=== PATIENT | male | born 1950 | race Caucasian/White ===

== ENCOUNTER 2022-10-15 00:20 | Emergency (ER) | payer OTHER ==
--- OUTSIDE RECORDS SUMMARY | 2022-10-15 00:28 | XMS REPORT | Continuity of Care Document ---
:1950 Author Organization [facility] t Address [address] [place] [address] [address] [place] [address] Care Team Providers Name Role Phone PRETTY SALAS Primary Care Physician Unavailable Will Guzman Attending Clinician Unavailable CASSIE SORIANO Attending Clinician Unavailable KARYN KRUGER Attending Clinician Unavailable TREVA SORIANO Attending Clinician Unavailable Demetria FAIRCHILD, Cassie Virk Attending Clinician Treva Soriano MD Attending Clinician Pretty Salas MD Attending Clinician Brandon ANDERSON, Maureen Attending Clinician Unavailable MICHAEL GARCIA Attending Clinician Unavailable CASSIE SORIANO Admitting Clinician Unavailable MICHAEL GARCIA Admitting Clinician Unavailable Payers Payer Name Policy Type Policy Number Effective Date Expiration Date S [facility] MEDICARE A B [id number] 2017 00:00:00 [facility] [id number] 2017 HEALTHCARE 00:00:00 AET[employer] O POS QPOS [id number] 2013 2017 00:00:00 00:00:00 MEDICARE ADVANTAGE [id number] [facility] MEDICARE PART A [id number] \\T\\ B - MEDICARE OPEN ACCESS [id number] 2016 HMO/POS/EPO/PPO - 00:00:00 [employer] Problems Condition Condition Condition Status Onset Resolution Last Treating Co mments Source Name Details Category Date Date Treatment Clinician Date Bilateral Bilateral Disease Active [facility] extremity extremity 00:00: of edema edema 00 Medicin e Bilateral Bilateral Disease Active [facility] extremity extremity 00:00: of edema edema 00 Medicin e Prostate Prostate Disease Active [facility] cancer cancer 10-02 [facility] 00:00: of 00 Medicin e 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 Medici n lymph node lymph node e Chemothe[facility] Chemothera Disease Active [facility] py induced py induced 10-02 Co llege nausea and nausea and 00:00: of vomiting vomiting 00 Medici n e Malignant Malignant Disease [facility]11 [facility] 00:[facility]: Medical prostate prostate 00 Gam[facility] [id number] Erectile Problem Comm on dysfunctio Spirit n, - [facility] unspecifie [facility] dysfunctio Medica l n type Center [id number] GERD Problem Common without Spirit esophagiti - [facility] [id number] Other Problem Common obesity Spirit due to - [facility] excess [facility] [id number] Esophageal Problem Co mmon stenosis Spirit - [facility] [id number] Mixed Problem Common hyperlipid Spirit emia - [facility] [id number] Essential Problem Comm on (primary) Spirit hypertensi - [facility] Allergies, Adverse Reactions, Alerts Allergy Allergy Status Severity Reaction(s) Onset Inactive Treating Comm ents Source Name Type Date Date Clinician NO KNOWN Allergy Active [facility] Social History Social Habit Start Date Stop Date Quantity Comments Source History [facility] ge Alcohol Frequency of Medi cine History [facility] ge Alcohol Std Drinks of Med icine History [facility] ge Alcohol Binge of Medicine History of Tobacco Common Spirit - Use [facility] Exposure to 2022-09-10 2022-09-20 Not sure [facility] Byrong e SARS-CoV-2 (event) 00:00:00 08:23:00 of Med icine Alcohol Comment 2018-01-10 2018-01-10 quit november 2016 [facility] 00:00:00 00:00:00 of Medicine Alcohol intake 2017-11-03 2017-11-03 .43 /d [facility] Cigarettes smoked 2017-11-03 2017-11-[address] [facility] current (pack per 00:00:00 00:00:00 [facility] Center day) - Reported Cigarette 2017-11-03 2017-11-[address] [facility] pack-years 00:00:00 00:00:00 [facility] Tobacco use and 2016-10-01 2016-10-01 Smokeless tobacco [employer] [facility] [employer] exposure 00:00:00 00:00:00 non-user of Medicine Sex [birth year] INEZ Khourys 00:00:00 00:00:00 [facility] Smoking Status Start Date Stop Date Source Former Smoker 2022-04-06 00:00:00 2022-04-06 00:00:00 Common S pirit - [facility] Medications Ordered Filled Start Stop Current Ordering Indication Dosage Frequency Signature Comments Components Source Medication Medication Date Date Medication? Clinician (SIG) Name Name omeprazole Yes 40mg Take 40 mg [facility] (PRILOSEC) 5-24 by mouth [facility] 40 MG 11:48: every 48 of capsule 00 hours. Medicin e Cholecalcif Yes 4000U Take 4,000 [facility] arash 5-24 Units by [place] (VITAMIN D) 11:48: mouth of 2000 UNITS 00 daily. Medicin CAPS e latanoprost Yes 1[drp] 1 Drop [facility] (XALATAN) 5-24 every College 0.005 % 11:48: evening. of ophthalmic 00 Medicin solution e B Complex Yes 1{tbl} Take 1 [facility] Vitamins 5-24 Tablet by Samuel ragland (VITAMIN B 11:48: mouth of COMPLEX OR) 00 daily. Medici n e Multiple Yes 1{tbl} Take 1 [facility] Minerals-Vi 5-24 Tablet by Col eva calderon 11:48: mouth of (CALCIUM-MA 00 daily. Medici n GNESIUM-ZIN e C-D3 OR) Melatonin Yes 1{tbl} Take 1 [facility] 3-2 MG TABS 5-24 Tablet by [facility] 11:48: mouth at of 00 bedtime. Medicin e omeprazole 0 Yes 40mg Take 40 mg [facility] (PRILOSEC) 5-24 by mouth [facility] 40 MG 11:48: every 48 of capsule 00 hours. Medicin e Cholecalcif 0 Yes 4000U Take 4,000 [facility] arash 5-24 Units by [place] (VITAMIN D) 11:48: mouth of 2000 UNITS 00 daily. Medicin CAPS e latanoprost Yes 1[drp] 1 Drop [facility] (XALATAN) 5-24 every College 0.005 % 11:48: evening. of ophthalmic 00 Medicin solution e B Complex Yes 1{tbl} Take 1 [facility] Vitamins 5-24 Tablet by [facility] (VITAMIN B 11:48: mouth of COMPLEX OR) 00 daily. Medici n e Multiple Yes 1{tbl} Take 1 [facility]-Vi 5-24 Tablet by [facility] tamins 11:48: mouth of (CALCIUM-MA 00 daily. Medici n GNESIUM-ZIN e C-D3 OR) Melatonin Yes 1{tbl} Take 1 [facility] 3-2 MG TABS 5-24 Tablet by [facility] 11:48: mouth at of 00 bedtime. Medicin e atorvastati 0 Yes [id number] TAKE 1 [facility] n (LIPITOR) 9-13 TABLET BY [facility] 20 MG 00:00: MOUTH of tablet 00 DAILY Medicin e atorvastati 0 Yes [id number] TAKE 1 [facility] n (LIPITOR) 9-13 TABLET BY [facility] 20 MG 00:00: MOUTH of tablet 00 DAILY Medicin e omeprazole 0 Yes 40mg Take 40 mg [facility] (PRILOSEC) 8-27 by mouth [facility] 40 MG 11:56: every 48 of capsule 21 hours. Medicin e Cholecalcif 0 Yes 4000U Take 4,000 [facility] arash 8-27 Units by [place] (VITAMIN D) 11:56: mouth of 2000 UNITS 21 daily. Medicin CAPS e latanoprost Yes 1[drp] 1 Drop [facility] (XALATAN) 8-27 every College 0.005 % 11:56: evening. of ophthalmic 21 Medicin solution e B Complex Yes 1{tbl} Take 1 [facility] Vit[facility] 8-27 Tablet by Samuel ragland (VITAMIN B 11:56: mouth of COMPLEX OR) 21 daily. Medici n e Multiple Yes 1{tbl} Take 1 [facility]-Vi 8-27 Tablet by [facility] tamins 11:56: mouth of (CALCIUM-MA 21 daily. Medici n GNESIUM-ZIN e C-D3 OR) Melatonin Yes 1{tbl} Take 1 [facility] 3-2 MG TABS 8-27 Tablet by [facility] 11:56: mouth at of 21 bedtime. Medicin e omeprazole Yes 40mg Take 40 mg [facility] (PRILOSEC) 8-27 by mouth [facility] 40 MG 11:56: every 48 of capsule 21 hours. Medicin e Cholecalcif Yes 4000U Take 4,000 [facility] arash 8-27 Units by [place] (VITAMIN D) 11:56: mouth of 2000 UNITS 21 daily. Medicin CAPS e latanoprost Yes 1[drp] 1 Drop [facility] (XALATAN) 8-27 every College 0.005 % 11:56: evening. of ophthalmic 21 Medicin solution e B Complex Yes 1{tbl} Take 1 [facility] Vit[facility] 8-27 Tablet by Samuel ragland (VITAMIN B 11:56: mouth of COMPLEX OR) 21 daily. Medici n e Multiple Yes 1{tbl} Take 1 [facility]-Vi 8-27 Tablet by [facility] tamins 11:56: mouth of (CALCIUM-MA 21 daily. Medici n GNESIUM-ZIN e C-D3 OR) Melatonin Yes 1{tbl} Take 1 [facility] 3-2 MG TABS 8-27 Tablet by [facility] 11:56: mouth at of 21 bedtime. Medicin e omeprazole Yes 40mg Take 40 mg [facility] (PRILOSEC) 8-24 by mouth [facility] 40 MG 15:26: every 48 of capsule 07 hours. Medicin e Cholecalcif 0 Yes 4000U Take 4,000 [facility] arash 8-24 Units by [place] (VITAMIN D) 15:26: mouth of 2000 UNITS 07 daily. Medicin CAPS e latanoprost Yes 1[drp] 1 Drop [facility] (XALATAN) 8-24 every College 0.005 % 15:26: evening. of ophthalmic 07 Medicin solution e B Complex Yes 1{tbl} Take 1 [facility] Vitamins 8-24 Tablet by [facility] (VITAMIN B 15:26: mouth of COMPLEX OR) 07 daily. Medici n e Multiple Yes 1{tbl} Take 1 [facility]-Vi 8-24 Tablet by [facility] tamins 15:26: mouth of (CALCIUM-MA 07 daily. Medici n GNESIUM-ZIN e C-D3 OR) Melatonin Yes 1{tbl} Take 1 [facility] 3-2 MG TABS 8-24 Tablet by [facility] 15:26: mouth at of 07 bedtime. Medicin e Melatonin Yes 1{tbl} Take 1 [facility] 3-2 MG TABS 8-24 Tablet by [facility] 13:45: mouth at of 56 bedtime. Medicin e omeprazole Yes 40mg Take 40 mg [facility] (PRILOSEC) 8-24 by mouth [facility] 40 MG 13:38: every 48 of capsule 14 hours. Medicin e Cholecalcif Yes 4000U Take 4,000 [facility] arash 8-24 Units by [place] (VITAMIN D) 13:38: mouth of 2000 UNITS 14 daily. Medicin CAPS e latanoprost Yes 1[drp] 1 Drop [facility] (XALATAN) 8-24 every College 0.005 % 13:38: evening. of ophthalmic 14 Medicin solution e B Complex Yes 1{tbl} Take 1 [facility] Vitamins 8-24 Tablet by [facility] (VITAMIN B 13:38: mouth of COMPLEX OR) 14 daily. Medici n e Multiple 0 Yes 1{tbl} Take 1 [facility]-Vi 8-24 Tablet by Col eva calderon 13:38: mouth of (CALCIUM-MA 14 daily. Medici n GNESIUM-ZIN e C-D3 OR) Pyridoxine 2020- No Take by [facility] HCl - 08-24 mouth. [place] (VITAMIN 13:37: 00:00 of B-6 OR) 58 :00 Medicin e Biotin 300 2020- No Take by [facility] MCG TABS 01-27-24 mouth. [place] 13:37: 00:00 of 31 :00 Medicin e Calcium 600 2020- No 600mg Take 600 [facility] MG TABS 01-27-24 mg by [place] 13:33: 00:00 mouth two of 30 :00 times Medicin daily. e Cyanocobala 2020- No 1000mg Take 1,000 [facility] min 01-27 08-24 mg by [place] (VITAMIN B 13:32: 00:00 mouth of 12 OR) 20 :00 daily. Medicin e NIACIN OR 2020- No Take by [facility] 01-27-24 mouth. [place] 13:31: 00:00 of 50 :00 Medicin e bimatoprost 2020- No 1[drp] Place 1 [facility] (LUMIGAN) 01-27 Drop into [facility] 0.03 % 13:28: 00:00 both eyes. of ophthalmic 30 :00 Medicin solution e omeprazole Yes 40mg Take 40 mg [facility] (PRILOSEC) 2-26 by mouth [facility] 40 MG 16:44: daily. of capsule 33 Medicin e Calcium 600 0 Yes 600mg Take 600 [facility] MG TABS 2-26 mg by [place] 16:44: mouth two of 33 times Medicin daily. e Cholecalcif 0 Yes 2000U Take 2,000 [facility] arash 2-26 Units by [place] (VITAMIN D) 16:44: mouth of 2000 UNITS 33 daily. Medicin CAPS e Cyanocobala 0 Yes 1000mg Take 1,000 [facility] min 2-26 mg by [place] (VITAMIN B 16:44: mouth of 12 OR) 33 daily. Medicin e bimatoprost 2021-0 Yes 1[drp] Place 1 [facility] (LUMIGAN) 2-26 Drop into Colle [facility] 0.03 % 16:44: both eyes. of ophthalmic 33 Medicin solution e NIACIN OR 0 Yes Take by [facility] 2-26 mouth. [place] 16:44: of 33 Medicin e Pyridoxine 2020-0 Yes Take by [facility] HCl 2-26 mouth. [place] (VITAMIN 16:44: of B-6 OR) 33 Medicin e Biotin 300 2020-0 Yes Take by [facility] MCG TABS 2-26 mouth. [place] 16:44: of 33 Medicin e omeprazole 2020-0 Yes 40mg Take 40 mg [facility] (PRILOSEC) 8-21 by mouth [facility] 40 MG 15:09: daily. of capsule 16 Medicin e Calcium 600 2020-0 Yes 600mg Take 600 [facility] MG TABS 8-21 mg by [place] 15:09: mouth two of 16 times Medicin daily. e Cholecalcif 2020-0 Yes 2000U Take 2,000 [facility] arash 8-21 Units by [place] (VITAMIN D) 15:09: mouth of 2000 UNITS 16 daily. Medicin CAPS e Cyanocobala 2020-0 Yes 1000mg Take 1,000 [facility] min 8-21 mg by [place] (VITAMIN B 15:09: mouth of 12 OR) 16 daily. Medicin e bimatoprost 2020-0 Yes 1[drp] Place 1 [facility] (LUMIGAN) 8-21 Drop into Colle [facility] 0.03 % 15:09: both eyes. of ophthalmic 16 Medicin solution e NIACIN OR 2020-0 Yes Take by [facility] 8-21 mouth. [place] 15:09: of 16 Medicin e Pyridoxine 2020-0 Yes Take by [facility] HCl 8-21 mouth. [place] (VITAMIN 15:09: of B-6 OR) 16 Medicin e Biotin 300 2020-0 Yes Take by [facility] MCG TABS 8-21 mouth. [place] 15:09: of 16 Medicin e thiamine 2020-0 2020- No 100mg Take [address] [facility] 100 MG 8-21 08-21 mg by [place] tablet 15:08: 00:00 mouth of 45 :00 daily. Medicin e omeprazole 2020-0 Yes 40mg Take 40 mg [facility] (PRILOSEC) 7-30 by mouth [facility] 40 MG 15:00: daily. of capsule 31 Medicin e Calcium 600 2020-0 Yes 600mg Take 600 [facility] MG TABS 7-30 mg by College 15:00: mouth two of 31 times Medicin daily. e Cholecalcif 2020-0 Yes 2000U Take 2,000 [facility] arash 7-30 Units by [place] (VITAMIN D) 15:00: mouth of 2000 UNITS 31 daily. Medicin CAPS e Cyanocobala 2020-0 Yes 1000mg Take 1,000 [facility] min 7-30 mg by [place] (VITAMIN B 15:00: mouth of 12 OR) 31 daily. Medicin e bimatoprost 2020-0 Yes 1[drp] Place 1 [facility] (LUMIGAN) 7-30 Drop into Colle ge 0.03 % 15:00: both eyes. of ophthalmic 31 Medicin solution e thiamine 2020-0 Yes 100mg Take 100 [facility] 100 MG 7-30 mg by [place] tablet 15:00: mouth of 31 daily. Medicin e NIACIN OR 2020-0 Yes Take by [facility] 7-30 mouth. College 15:00: of 31 Medicin e Pyridoxine 2020-0 Yes Take by [facility] HCl 7-30 mouth. [place] (VITAMIN 15:00: of B-6 OR) 31 Medicin e Biotin 300 2020-0 Yes Take by [facility] MCG TABS 7-30 mouth. College 15:00: of 31 Medicin e atorvastati 2020-0 Yes [id number] 20mg Take 1 Tab [facility] n (LIPITOR) 7-30 by mouth [place] [facility] 20 MG 00:00: daily. of tablet 00 Medicin e atorvastati 2020-0 Yes [id number] 20mg Take 1 Tab [facility] n (LIPITOR) 7-30 by mouth [place] 20 MG 00:00: daily. of tablet 00 Medicin e atorvastati 2020-0 Yes [id number] 20mg Take 1 Tab [facility] n (LIPITOR) 7-30 by mouth [place] 20 MG 00:00: daily. of tablet 00 Medicin e atorvastati 2020-0 Yes [id number] 20mg Take 1 Tab [facility] n (LIPITOR) 7-30 by mouth [place] 20 MG 00:00: daily. of tablet 00 Medicin e atorvastati 2020-0 Yes [id number] 20mg Take 1 Tab [facility] n (LIPITOR) 7-30 by mouth [place] 20 MG 00:00: daily. of tablet 00 Medicin e atorvastati 2020-0 Yes [id number] 20mg Take 1 Tab [facility] n (LIPITOR) 7-30 by mouth [place] 20 MG 00:00: daily. of tablet 00 Medicin e atorvastati 2020-0 Yes [id number] 20mg Take 1 Tab [facility] n (LIPITOR) 7-30 by mouth [place] 20 MG 00:00: daily. of tablet 00 Medicin e omeprazole 2020-0 Yes 40mg Take 40 mg [facility] (PRILOSEC) 2-21 by mouth [facility]le [facility] 40 MG 17:41: daily. of capsule 15 Medicin e Calcium 600 2020-0 Yes 600mg Take 600 [facility] MG TABS 2-21 mg by [place] 17:41: mouth two of 15 times Medicin daily. e Cholecalcif 2020-0 Yes 2000U Take 2,000 [facility] arash 2-21 Units by [place] (VITAMIN D) 17:41: mouth of 2000 UNITS 15 daily. Medicin CAPS e Cyanocobala 2020-0 Yes 1000mg Take 1,000 [facility] min 2-21 mg by [place] (VITAMIN B 17:41: mouth of 12 OR) 15 daily. Medicin e bimatoprost 2020-0 Yes 1[drp] Place 1 [facility] (LUMIGAN) 2-21 Drop into [facility] 0.03 % 17:41: both eyes. of ophthalmic 15 Medicin solution e thiamine 2020-0 Yes 100mg Take 100 [facility] 100 MG 2-21 mg by [place] tablet 17:41: mouth of 15 daily. Medicin e NIACIN OR 2020-0 Yes Take by [facility] 2-21 mouth. College 17:41: of 15 Medicin e Pyridoxine 2020-0 Yes Take by [facility] HCl 2-21 mouth. [place] (VITAMIN 17:41: of B-6 OR) 15 Medicin e Biotin 300 2020-0 Yes Take by [facility] MCG TABS 2-21 mouth. [place] 17:41: of 15 Medicin e omeprazole 2018- Yes 40mg Take 40 mg [facility] (PRILOSEC) 0-08 by mouth [facility] 40 MG 17:26: daily. of capsule 35 Medicin e Calcium 600 2018-06 Yes 600mg Take 600 [facility] MG TABS 0-08 mg by [facility] 17:26: mouth two of 35 times Medicin daily. e Cholecalcif 2018-06 Yes 2000U Take 2,000 [facility] arash 0-08 Units by [place] (VITAMIN D) 17:26: mouth of 2000 UNITS 35 daily. Medicin CAPS e Cyanocobala 2018-06 Yes 1000mg Take 1,000 [facility] min 0-08 mg by [facility] (VITAMIN B 17:26: mouth of 12 OR) 35 daily. Medicin e bimatoprost 2018-06 Yes 1[drp] Place 1 [facility] (LUMIGAN) 0-08 Drop into Colle [facility] 0.03 % 17:26: both eyes. of ophthalmic 35 Medicin solution e thiamine 2018-06 Yes 100mg Take 100 [facility] 100 MG 0-08 mg by [place] tablet 17:26: mouth of 35 daily. Medicin e NIACIN OR 2018-06 Yes Take by [facility] 0-08 mouth. [place] 17:26: of 35 Medicin e Pyridoxine 2018-06 Yes Take by [facility] HCl 0-08 mouth. [place] (VITAMIN 17:26: of B-6 OR) 35 Medicin e Biotin 300 2018-06 Yes Take by [facility] MCG TABS 0-08 mouth. [place] 17:26: of 35 Medicin e Cyanocobala Yes 1000mg Take 1,000 [facility] min 9-13 mg by [place] (VITAMIN B 16:14: mouth of 12 OR) 34 daily. Medicin e bimatoprost Yes 1[drp] Place 1 [facility] (LUMIGAN) 9-13 Drop into Colle ge 0.03 % 16:14: both eyes. of ophthalmic 34 Medicin solution e thiamine Yes 100mg Take 100 [facility] 100 MG 9-13 mg by [place] tablet 16:14: mouth of 34 daily. Medicin e NIACIN OR Yes Take by [facility] 9-13 mouth. College 16:14: of 34 Medicin e Pyridoxine Yes Take by [facility] HCl 9-13 mouth. [place] (VITAMIN 16:14: of B-6 OR) 34 Medicin e Biotin 300 Yes Take by [facility] MCG TABS 9-13 mouth. College 16:14: of 34 Medicin e omeprazole 2019-0 Yes 40mg Take 40 mg [facility] (PRILOSEC) 9-13 by mouth Colle [facility] 40 MG 16:14: daily. of capsule 34 Medicin e Calcium 600 2018-0 Yes 600mg Take 600 [facility] MG TABS 9-13 mg by [facility] 16:14: mouth two of 34 times Medicin daily. e Cholecalcif 2019-0 Yes 2000U Take 2,000 [facility] arash 9-13 Units by [place] (VITAMIN D) 16:14: mouth of 2000 UNITS 34 daily. Medicin CAPS e omeprazole 0 Yes 40mg Take 40 mg [facility] (PRILOSEC) 8-27 by mouth Colle [facility] 40 MG 14:53: daily. of capsule 47 Medicin e Calcium 600 0 Yes 600mg Take 600 [facility] MG TABS 8-27 mg by [facility] 14:53: mouth two of 47 times Medicin daily. e Cholecalcif 0 Yes 2000U Take 2,000 [facility] arash 8-27 Units by [place] (VITAMIN D) 14:53: mouth of 2000 UNITS 47 daily. Medicin CAPS e Cyanocobala 0 Yes 1000mg Take 1,000 [facility] min 8-27 mg by [place] (VITAMIN B 14:53: mouth of 12 OR) 47 daily. Medicin e bimatoprost 2018-0 Yes 1[drp] Place 1 [facility] (LUMIGAN) 8-27 Drop into Colle ge 0.03 % 14:53: both eyes. of ophthalmic 47 Medicin solution e thiamine 0 Yes 100mg Take 100 [facility] 100 MG 8-27 mg by [place] tablet 14:53: mouth of 47 daily. Medicin e NIACIN OR 0 Yes Take by [facility] 8-27 mouth. College 14:53: of 47 Medicin e Pyridoxine 2018-0 Yes Take by [facility] HCl 8-27 mouth. College (VITAMIN 14:53: of B-6 OR) 47 Medicin e Biotin 300 2018-0 Yes Take by [facility] MCG TABS 8-27 mouth. College 14:53: of 47 Medicin e atorvastati 2018-0 Yes [id number] 20mg Take 1 Tab [facility] n (LIPITOR) 8-13 by mouth [place] 20 MG 00:00: daily. of tablet 00 Medicin e atorvastati 2019-0 Yes [id number] 20mg Take 1 Tab [facility] n (LIPITOR) 8-13 by mouth [place] 20 MG 00:00: daily. of tablet 00 Medicin e atorvastati Yes [id number] 20mg Take 1 Tab [facility] (LIPITOR) 8-13 by mouth [place] 20 MG 00:00: daily. of tablet 00 Medicin e atorvastati Yes [id number] 20mg Take 1 Tab [facility] (LIPITOR) 8-13 by mouth [place] 20 MG 00:00: daily. of tablet 00 Medicin e atorvastati 2020- No [id number] 20mg Take 1 Tab [facility] n (LIPITOR) 8-13 07-30 by mouth [facility] 20 MG 00:00: 00:00 daily. of tablet 00 :00 Medicin e atorvastati 2017-06 Yes 20mg QD Take [address] [facility] [facility] (LIPITOR) 0-17 by mouth [facility] 20 MG 16:36: daily. Medical tablet 29 Center zolpidem 2017-06 Yes 10mg Take [address] [facility] (AMBIEN) 10 0-17 by mouth [facility] mg tablet 16:36: every Medical 29 night as Center needed for Insomnia. omeprazole 2017-06 Yes 40mg QD Take [address] (PRILOSEC) 0-17 by mouth [facility] 40 MG 16:36: daily. Medical capsule 29 Center travoprost 2017-06 Yes 1[drp] QD Place [address] (TRAVATAN 0-17 drop into [facility]) 0.004 % 16:36: both eyes Me dical Drop 29 nightly. Center ophthalmic drops atorvastati 2017-06 Yes 20mg QD Take [address] n (LIPITOR) 0-17 by mouth [facility] 20 MG 16:36: daily. Medical tablet 29 Center zolpidem 2017-06 Yes 10mg Take [address] (AMBIEN) 10 0-17 by mouth [facility] mg tablet 16:36: every Medical 29 night as Center needed for Insomnia. omeprazole 2017-06 Yes 40mg QD Take [address] (PRILOSEC) 0-17 by mouth [facility] 40 MG 16:36: daily. Medical capsule 29 Center travoprost 2017-06 Yes 1[drp] QD Place [address] (TRAVATAN 0-17 drop into [facility]) 0.004 % 16:36: both eyes Me dical Drop 29 nightly. Center ophthalmic drops selenium Yes 1{appli Apply 1 [facility] sulfide 4-05 cation} applicatio [facility] (SELSUN) 00:00: n of 2.5 % 00 topically Medicin shampoo daily as e needed. Indication s: LOTION selenium Yes 1{appli Apply 1 [facility] sulfide 4-05 cation} applicatio [facility] (SELSUN) 00:00: n of 2.5 % 00 topically Medicin shampoo daily as e needed. Indication s: LOTION selenium Yes 1{appli Apply 1 [facility] sulfide 4-05 cation} applicatio [facility] (SELSUN) 00:00: n of 2.5 % 00 topically Medicin shampoo as needed. e Indication s: LOTION selenium Yes 1{appli Apply 1 [facility] sulfide 4-05 cation} applicatio [facility] (SELSUN) 00:00: n of 2.5 % 00 topically Medicin shampoo daily as e needed. Indication s: LOTION selenium Yes 1{appli Apply 1 [facility] sulfide 4-05 cation} applicatio [facility] (SELSUN) 00:00: n of 2.5 % 00 topically Medicin shampoo as needed. e Indication s: LOTION selenium Yes 1{appli Apply 1 [facility] sulfide 4-05 cation} applicatio [facility] (SELSUN) 00:00: n of 2.5 % 00 topically Medicin shampoo as needed. e Indication s: LOTION selenium Yes 1{appli Apply 1 [facility] sulfide 4-05 cation} applicatio [facility] (SELSUN) 00:00: n of 2.5 % 00 topically Medicin shampoo as needed. e Indication s: LOTION selenium Yes 1{appli Apply 1 [facility] sulfide 4-05 cation} applicatio [facility] (SELSUN) 00:00: n of 2.5 % 00 topically Medicin shampoo as needed. e Indication s: LOTION selenium Yes 1{appli Apply 1 [facility] sulfide 4-05 cation} applicatio [facility] (SELSUN) 00:00: n of 2.5 % 00 topically Medicin shampoo as needed. e Indication s: LOTION selenium Yes 1{appli Apply 1 [facility] sulfide 4-05 cation} applicatio [facility] (SELSUN) 00:00: n of 2.5 % 00 topically Medicin shampoo as needed. e Indication s: LOTION selenium Yes 1{appli Apply 1 [facility] sulfide 4-05 cation} applicatio [facility] (SELSUN) 00:00: n of 2.5 % 00 topically Medicin shampoo as needed. e Indication s: LOTION selenium Yes 1{appli Apply 1 [facility] sulfide 4-05 cation} applicatio [facility] (SELSUN) 00:00: n of 2.5 % 00 topically Medicin shampoo daily as e needed. Indication s: LOTION selenium Yes 1{appli Apply 1 [facility] sulfide 4-05 cation} applicatio [facility] (SELSUN) 00:00: n of 2.5 % 00 topically Medicin shampoo daily as e needed. Indication s: LOTION hydrocortis Yes 1{appli Apply 1 [facility] one 2.5 % 3-30 cation} applicatio [facility] cream 00:00: n of 00 topically Medicin 2 times e daily as needed. hydrocortis Yes 1{appli Apply 1 [facility] one 2.5 % 3-30 cation} applicatio [facility]lege cream 00:00: n of 00 topically Medicin 2 times e daily as needed. hydrocortis Yes 1{appli Apply 1 [facility] one 2.5 % 3-30 cation} applicatio C ollege cream 00:00: n of 00 topically Medicin 2 times e daily as needed. hydrocortis Yes 1{appli Apply 1 [facility] one 2.5 % 3-30 cation} applicatio [facility] cream 00:00: n of 00 topically Medicin 2 times e daily as needed. hydrocortis 2017-0 Yes 1{appli Apply 1 [facility] one 2.5 % 3-30 cation} applicatio [facility] cream 00:00: n of 00 topically Medicin 2 times e daily as needed. hydrocortis Yes 1{appli Apply 1 [facility] one 2.5 % 3-30 cation} applicatio C ollege cream 00:00: n of 00 topically Medicin 2 times e daily as needed. hydrocortis Yes 1{appli Apply 1 [facility] one 2.5 % 3-30 cation} applicatio C [facility]lege cream 00:00: n of 00 topically Medicin 2 times e daily as needed. hydrocortis Yes 1{appli Apply 1 [facility] one 2.5 % 3-30 cation} applicatio C [facility]lege cream 00:00: n of 00 topically Medicin 2 times e daily as needed. hydrocortis Yes 1{appli Apply 1 [facility] one 2.5 % 3-30 cation} applicatio [facility] cream 00:00: n of 00 topically Medicin 2 times e daily as needed. hydrocortis Yes 1{appli Apply 1 [facility] one 2.5 % 3-30 cation} applicatio C ollege cream 00:00: n of 00 topically Medicin 2 times e daily as needed. hydrocortis Yes 1{appli Apply 1 [facility] one 2.5 % 3-30 cation} applicatio C [facility]lege cream 00:00: n of 00 topically Medicin 2 times e daily as needed. hydrocortis Yes 1{appli Apply 1 [facility] one 2.5 % 3-30 cation} applicatio C [facility]lege cream 00:00: n of 00 topically Medicin 2 times e daily as needed. hydrocortis Yes 1{appli Apply 1 [facility] one 2.5 % 3-30 cation} applicatio C [facility] cream 00:00: n of 00 topically Medicin 2 times e daily as needed. ketoconazol Yes 1{appli Apply 1 [facility] e (NIZORAL) 3-26 cation} [facility] [employer] 2 % shampoo 00:00: n of 00 topically Medicin daily as e needed. ketoconazol Yes 1{appli Apply 1 [facility] e (NIZORAL) 3-26 cation} [facility] 2 % shampoo 00:00: n of 00 topically Medicin daily as e needed. ketoconazol Yes 1{appli Apply 1 [facility] e (NIZORAL) 3-26 cation} [facility] 2 % shampoo 00:00: n of 00 topically Medicin daily as e needed. ketoconazol Yes 1{appli Apply 1 [facility] e (NIZORAL) 3-26 cation} [facility] 2 % shampoo 00:00: n of 00 topically Medicin daily as e needed. ketoconazol Yes 1{appli Apply 1 [facility] e (NIZORAL) 3-26 cation} [facility] 2 % shampoo 00:00: n of 00 topically Medicin daily as e needed. ketoconazol Yes 1{appli Apply 1 [facility] e (NIZORAL) 3-26 cation} [facility] 2 % shampoo 00:00: n of 00 topically Medicin daily as e needed. ketoconazol Yes 1{appli Apply 1 [facility] e (NIZORAL) 3-26 cation} [facility] 2 % shampoo 00:00: n of 00 topically Medicin daily as e needed. ketoconazol Yes 1{appli Apply 1 [facility] e (NIZORAL) 3-26 cation} [facility] 2 % shampoo 00:00: n of 00 topically Medicin daily as e needed. ketoconazol Yes 1{appli Apply 1 [facility] e (NIZORAL) 3-26 cation} [facility] 2 % shampoo 00:00: n of 00 topically Medicin daily as e needed. ketoconazol Yes 1{appli Apply 1 [facility] e (NIZORAL) 3-26 cation} [facility] 2 % shampoo 00:00: n of 00 topically Medicin daily as e needed. ketoconazol Yes 1{appli Apply 1 [facility] e (NIZORAL) 3-26 cation} [facility] 2 % shampoo 00:00: n of 00 topically Medicin daily as e needed. ketoconazol 2017- Yes 1{appli Apply 1 [facility] e (NIZORAL) 3-26 cation} applicatio [place] 2 % shampoo 00:00: n of 00 topically Medicin daily as e needed. ketoconazol 2016- Yes 1{appli Apply 1 [facility] e (NIZORAL) 3-26 cation} applicatio [place] 2 % shampoo 00:00: n of 00 topically Medicin daily as e needed. Atorvastati Atorvastati No 1{table QD Atorvastat n Calcium n Calcium t} in Calcium 20 MG 20 MG 20 MG Omeprazole Omeprazole No 1{capsu BID Omeprazole 40 MG 40 MG le} 40 MG Tadalafil 5 Tadalafil 5 No 1{table QD Tadalafil MG MG t_as_ne 5 MG eded} Omeprazole Omeprazole No 1{capsu BID Omeprazole 40 MG 40 MG le} 40 MG Atorvastati Atorvastati No 1{table QD Atorvastat n Calcium n Calcium t} in Calcium 20 MG 20 MG 20 MG Tadalafil 5 Tadalafil 5 No 1{table QD Tadalafil MG MG t_as_ne 5 MG eded} Omeprazole Omeprazole No 1{capsu BID Omeprazole 40 MG 40 MG le} 40 MG Atorvastati Atorvastati No 1{table QD Atorvastat n Calcium n Calcium t} in Calcium 20 MG 20 MG 20 MG Tadalafil 5 Tadalafil 5 No 1{table QD Tadalafil MG MG t_as_ne 5 MG eded} Omeprazole Omeprazole No 1{capsu BID Omeprazole 40 MG 40 MG le} 40 MG Atorvastati Atorvastati No 1{table QD Atorvastat n Calcium n Calcium t} in Calcium 20 MG 20 MG 20 MG Tadalafil 5 Tadalafil 5 No 1{table QD Tadalafil MG MG t_as_ne 5 MG eded} Omeprazole Omeprazole No 1{capsu BID Omeprazole 40 MG 40 MG le} 40 MG Atorvastati Atorvastati No 1{table QD Atorvastat n Calcium n Calcium t} in Calcium 20 MG 20 MG 20 MG Tadalafil 5 Tadalafil 5 No 1{table QD Tadalafil MG MG t_as_ne 5 MG eded} Immunizations Ordered Immunization Filled Immunization Date Status Commen ts Source Name Name Influenza Hd 2019-02-16 Completed [facility] Col[facility] ge 00:00:00 of Medicine Influenza Hd 2019-02-16 Completed [facility] Colle ge 00:00:00 of Medicine Influenza Hd 2019-02-16 Completed [facility]le ge 00:00:00 of Medicine Influenza Hd 2019-02-16 Completed [facility] Colle ge 00:00:00 of Medicine Influenza Hd 2019-02-16 Completed [facility] 00:00:00 of Medicine Influenza Hd 2019-02-16 Completed [facility] Colle ge 00:00:00 of Medicine Influenza Hd 2019-02-16 Completed [facility] Colle ge 00:00:00 of Medicine Influenza Hd 2019-02-16 Completed [facility] Colle ge 00:00:00 of Medicine Influenza Hd 2019-02-16 Completed [facility] 00:00:00 of Medicine Influenza Hd 2019-02-16 Completed [facility] 00:00:00 of Medicine Influenza Hd 2019-02-16 Completed [facility] 00:00:00 of Medicine Influenza Hd 2019-02-16 Completed [facility] 00:00:00 of Medicine Zoster Recombinant 2018-12-21 Completed [facility] 00:00:00 of Medicine Zoster Recombinant 2018-12-21 Completed [facility] 00:00:00 of Medicine Zoster Recombinant 2018-12-21 Completed [facility] 00:00:00 of Medicine Zoster Recombinant 2018-12-21 Completed [facility] 00:00:00 of Medicine Zoster Recombinant 2018-12-21 Completed [facility] 00:00:00 of Medicine Zoster Recombinant 2018-12-21 Completed [facility] 00:00:00 of Medicine Zoster Recombinant 2018-12-21 Completed [facility] 00:00:00 of Medicine Zoster Recombinant 2018-12-21 Completed [facility] 00:00:00 of Medicine Zoster Recombinant 2018-12-21 Completed [facility] 00:00:00 of Medicine Zoster Recombinant 2018-12-21 Completed [facility] 00:00:00 of Medicine Zoster Recombinant 2018-12-21 Completed [facility] 00:00:00 of Medicine Zoster Recombinant 2018-12-21 Completed [facility] 00:00:00 of Medicine Zoster Recombinant 2018-10-01 Completed [facility] 00:00:00 of Medicine Zoster Recombinant 2018-10-01 Completed [facility] 00:00:00 of Medicine Zoster Recombinant 2018-10-01 Completed [facility] [employer] 00:00:00 of Medicine Zoster Recombinant 2018-10-01 Completed [facility] [employer] 00:00:00 of Medicine Zoster Recombinant 2018-10-01 Completed [facility] 00:00:00 of Medicine Zoster Recombinant 2018-10-01 Completed [facility] 00:00:00 of Medicine Zoster Recombinant 2018-10-01 Completed [facility] [employer] 00:00:00 of Medicine Zoster Recombinant 2018-10-01 Completed [facility] 00:00:00 of Medicine Zoster Recombinant 2018-10-01 Completed [facility] [employer] 00:00:00 of Medicine Zoster Recombinant 2018-10-01 Completed [facility] [employer] 00:00:00 of Medicine Zoster Recombinant 2018-10-01 Completed [facility] [employer] 00:00:00 of Medicine Zoster Recombinant 2018-10-01 Completed [facility] 00:00:00 of Medicine Pneumococcal 2018-09-26 Completed [facility] Colle ge Polysaccharide 00:00:00 of Medicin e Pneumococcal 2018-09-26 Completed [facility]le ge Polysaccharide 00:00:00 of Medicin e Pneumococcal 2018-09-26 Completed [facility] Colle ge Polysaccharide 00:00:00 of Medicin e Pneumococcal 2018-09-26 Completed [facility]le [facility] Polysaccharide 00:00:00 of Medicin e Pneumococcal 2018-09-26 Completed [facility] Colle ge Polysaccharide 00:00:00 of Medicin e Vital Signs Vital Name Observation Time Observation Value Comments Source height 2022-04-06 10:30:00 68 [in_i] [facility] weight 2022-04-06 10:30:00 185.9 [lb_av] Common [facility] temperature 2022-04-06 10:30:00 97.2 [degF] [facility] bmi 2022-04-06 10:30:00 28.26 kg/m2 [facility] oximetry 2022-04-06 10:30:00 98 % [facility] respiratory rate 2022-04-06 10:30:00 18 /min Comm on [facility] blood pressure 2022-04-06 10:30:00 137 mm[Hg] Common [facility] blood pressure 2022-04-06 10:30:00 71 mm[Hg] Common [facility] - diastolic [facility] height 2022-04-06 10:40:00 68 [in_i] Common S [facility] weight 2022-04-06 10:40:00 185.9 [lb_av] Common [facility] temperature 2022-04-06 10:40:00 97.2 [degF] [facility] bmi 2022-04-06 10:40:00 28.26 kg/m2 Common S [facility] oximetry 2022-04-06 10:40:00 98 % Common [facility] respiratory rate 2022-04-06 10:40:00 18 /min Comm on [facility] blood pressure 2022-04-06 10:40:00 137 mm[Hg] Common [facility] - systolic [facility] blood pressure 2022-04-06 10:40:00 71 mm[Hg] Common [facility] - diastolic [facility] height 2022-02-03 11:00:00 68 [in_i] Common [facility] weight 2022-02-03 11:00:00 190 [lb_av] [facility] temperature 2022-02-03 11:00:00 97.6 [degF] Common [facility] bmi 2022-02-03 11:00:00 28.89 kg/m2 Common S [facility] oximetry 2022-02-03 11:00:00 96 % Common [facility] respiratory rate 2022-02-03 11:00:00 17 /min Comm on [facility] blood pressure 2022-02-03 11:00:00 134 mm[Hg] Common [facility] - systolic [facility] blood pressure 2022-02-03 11:00:00 72 mm[Hg] Common [facility] - diastolic [facility] Systolic blood 2021-10-27 16:48:00 140 mm[Hg] [facility] Medicine Diastolic blood 2021-10-27 16:48:00 89 mm[Hg] [facility] pressure Medicine Heart rate 2021-10-27 16:48:00 73 /min [facility] Body temperature 2021-10-27 16:48:00 36.72 Mi [facility] Respiratory rate 2021-10-27 16:48:00 18 /min [facility] Body height 2021-10-27 16:48:00 172.7 cm [facility] Body weight 2021-10-27 16:48:00 85.367 kg [facility] BMI 2021-10-27 16:48:00 28.62 kg/m2 [facility] Systolic blood 2021-01-30 16:55:00 146 mm[Hg] [facility] Medicine Diastolic blood 2021-01-30 16:55:00 97 mm[Hg] [facility] Medicine Heart rate 2021-01-30 16:55:00 70 /min [facility] Body temperature 2021-01-30 16:55:00 36.5 Mi [facility] Body height 2021-01-30 16:55:00 172.7 cm [facility] Body weight 2021-01-30 16:55:00 83.734 kg [facility] BMI 2021-01-30 16:55:00 28.07 kg/m2 [facility] Systolic blood 2021-01-27 20:25:00 120 mm[Hg] [facility] Medicine Diastolic blood 2021-01-27 20:25:00 80 mm[Hg] [facility] Medicine Heart rate 2021-01-27 20:25:00 70 /min [facility] ol[facility] Medicine Body temperature 2021-01-27 20:25:00 36.67 Mi [facility] Respiratory rate 2021-01-27 20:25:00 16 /min [facility] Body height 2021-01-27 20:25:00 172.7 cm [facility] ollege of Medicine Body weight 2021-01-27 20:25:00 84.369 kg [facility] of Medicine BMI 2021-01-27 20:25:00 28.28 kg/m2 [facility] Oxygen saturation in 2021-01-27 20:25:00 100 /min [facility] of Arterial blood by Medicine Pulse oximetry Systolic blood 2021-01-27 18:22:00 120 mm[Hg] [facility] of pressure Medicine Diastolic blood 2021-01-27 18:22:00 80 mm[Hg] [facility] Medicine Heart rate 2021-01-27 18:22:00 70 /min [facility] Body temperature 2021-01-27 18:22:00 36.67 Mi [facility] Respiratory rate 2021-01-27 18:22:00 16 /min [facility] Body height 2021-01-27 18:22:00 172.7 cm [facility] Body weight 2021-01-27 18:22:00 84.369 kg [facility] BMI 2021-01-27 18:22:00 28.28 kg/m2 [facility] Oxygen saturation in 2021-01-27 18:22:00 100 /min [facility] of Arterial blood by Medicine Pulse oximetry Systolic blood 2020-08-01 16:38:00 141 mm[Hg] [facility] pressure Medicine Diastolic blood 2020-08-01 16:38:00 87 mm[Hg] [facility] Medicine Heart rate 2020-08-01 16:38:00 72 /min [facility] Body temperature 2020-08-01 16:38:00 36.89 Mi [facility] Body height 2020-08-01 16:38:00 172.7 cm [facility] Body weight 2020-08-01 16:38:00 85.095 kg [facility] BMI 2020-08-01 16:38:00 28.52 kg/m2 [facility] Systolic blood 2020-01-25 15:02:00 134 mm[Hg] [facility] of pressure Medicine Diastolic blood 2020-01-25 15:02:00 87 mm[Hg] [facility] Medicine Heart rate 2020-01-25 15:02:00 72 /min [facility] Medicine Body temperature 2020-01-25 15:02:00 36.67 Mi [facility] Body height 2020-01-25 15:02:00 172.7 cm [facility] Body weight 2020-01-25 15:02:00 84.732 kg [facility] BMI 2020-01-25 15:02:00 28.40 kg/m2 [facility] Systolic blood 2020-01-25 15:02:00 134 mm[Hg] [facility] pressure Medicine Diastolic blood 2020-01-25 15:02:00 87 mm[Hg] [facility] Medicine Heart rate 2020-01-25 15:02:00 72 /min [facility] Body temperature 2020-01-25 15:02:00 36.67 Mi [facility] Body height 2020-01-25 15:02:00 172.7 cm [facility] Body weight 2020-01-25 15:02:00 84.732 kg [facility] BMI 2020-01-25 15:02:00 28.40 kg/m2 [facility] Systolic blood 2020-01-03 14:59:00 138 mm[Hg] [facility] Medicine Diastolic blood 2020-01-03 14:59:00 86 mm[Hg] [facility] Medicine Heart rate 2020-01-03 14:59:00 73 /min [facility] Body temperature 2020-01-03 14:59:00 36.78 Mi [facility] Respiratory rate 2020-01-03 14:59:00 18 /min [facility] Body height 2020-01-03 14:59:00 172.7 cm [facility] Body weight 2020-01-03 14:59:00 84.369 kg [facility] BMI 2020-01-03 14:59:00 28.28 kg/m2 [facility] Oxygen saturation in 2020-01-03 14:59:00 98 /min [facility] Arterial blood by Medicine Pulse oximetry Systolic blood 2020-01-03 14:59:00 138 mm[Hg] [facility] of pressure Medicine Diastolic blood 2020-01-03 14:59:00 86 mm[Hg] [facility] of pressure Medicine Heart rate 2020-01-03 14:59:00 73 /min [facility] Body temperature 2020-01-03 14:59:00 36.78 Mi [facility] Respiratory rate 2020-01-03 14:59:00 18 /min [facility] Body height 2020-01-03 14:59:00 172.7 cm [facility] Body weight 2020-01-03 14:59:00 84.369 kg [facility] BMI 2020-01-03 14:59:00 28.28 kg/m2 [facility] Oxygen saturation in 2020-01-03 14:59:00 98 /min [facility] Arterial blood by Medicine Pulse oximetry Systolic blood 2019-07-27 17:38:00 130 mm[Hg] [facility] of pressure Medicine Diastolic blood 2019-07-27 17:38:00 79 mm[Hg] [facility] of pressure Medicine Heart rate 2019-07-27 17:38:00 69 /min [facility] Body temperature 2019-07-27 17:38:00 36.67 Mi [facility] Body height 2019-07-27 17:38:00 172.7 cm [facility] Body weight 2019-07-27 17:38:00 87.091 kg [facility] BMI 2019-07-27 17:38:00 29.19 kg/m2 [facility] Systolic blood 2019-07-27 17:38:00 130 mm[Hg] [facility] of pressure Medicine Diastolic blood 2019-07-27 17:38:00 79 mm[Hg] [facility] of pressure Medicine Heart rate 2019-07-27 17:38:00 69 /min [facility] Body temperature 2019-07-27 17:38:00 36.67 Mi [facility] Body height 2019-07-27 17:38:00 172.7 cm [facility] Body weight 2019-07-27 17:38:00 87.091 kg [facility] BMI 2019-07-27 17:38:00 29.19 kg/m2 [facility] Systolic blood 2019-03-13 17:29:00 120 mm[Hg] [facility] of pressure Medicine Diastolic blood 2019-03-13 17:29:00 82 mm[Hg] [facility] Medicine Heart rate 2019-03-13 17:29:00 68 /min [facility] Body temperature 2019-03-13 17:29:00 36.72 Mi [facility] Respiratory rate 2019-03-13 17:29:00 16 /min [facility] Body height 2019-03-13 17:29:00 172.7 cm [facility] Body weight 2019-03-13 17:29:00 86.637 kg [facility] BMI 2019-03-13 17:29:00 29.04 kg/m2 [facility] Oxygen saturation in 2019-03-13 17:29:00 97 /min [facility] of Arterial blood by Medicine Pulse oximetry Systolic blood 2019-03-13 17:29:00 120 mm[Hg] [facility] pressure Medicine Diastolic blood 2019-03-13 17:29:00 82 mm[Hg] [facility] Medicine Heart rate 2019-03-13 17:29:00 68 /min [facility] Body temperature 2019-03-13 17:29:00 36.72 Mi [facility] Respiratory rate 2019-03-13 17:29:00 16 /min [facility] Body height 2019-03-13 17:29:00 172.7 cm [facility] Body weight 2019-03-13 17:29:00 86.637 kg [facility] BMI 2019-03-13 17:29:00 29.04 kg/m2 [facility] Oxygen saturation in 2019-03-13 17:29:00 97 /min [facility] of Arterial blood by Medicine Pulse oximetry Systolic blood 2019-02-16 16:11:00 126 mm[Hg] [facility] of pressure Medicine Diastolic blood 2019-02-16 16:11:00 86 mm[Hg] [facility] pressure Medicine Heart rate 2019-02-16 16:11:00 77 /min [facility] Body temperature 2019-02-16 16:11:00 36.94 Mi [facility] Body height 2019-02-16 16:11:00 170.2 cm [facility] Body weight 2019-02-16 16:11:00 87.726 kg [facility] BMI 2019-02-16 16:11:00 30.29 kg/m2 [facility] Oxygen saturation in 2019-02-16 16:11:00 96 /min [facility] of Arterial blood by Medicine Pulse oximetry Systolic blood 2019-02-16 16:11:00 126 mm[Hg] [facility] of pressure Medicine Diastolic blood 2019-02-16 16:11:00 86 mm[Hg] [facility] pressure Medicine Heart rate 2019-02-16 16:11:00 77 /min [facility] Body temperature 2019-02-16 16:11:00 36.94 Mi [facility] Body height 2019-02-16 16:11:00 170.2 cm [facility] Body weight 2019-02-16 16:11:00 87.726 kg [facility] BMI 2019-02-16 16:11:00 30.29 kg/m2 [facility] Oxygen saturation in 2019-02-16 16:11:00 96 /min [facility] of Arterial blood by Medicine Pulse oximetry Systolic blood 2019-01-30 14:50:00 142 mm[Hg] [facility] of pressure Medicine Diastolic blood 2019-01-30 14:50:00 84 mm[Hg] [facility] of pressure Medicine Heart rate 2019-01-30 14:50:00 85 /min [facility] Body temperature 2019-01-30 14:50:00 36.56 Mi [facility] Body height 2019-01-30 14:50:00 170.2 cm [facility] Body weight 2019-01-30 14:50:00 89.54 kg [facility] BMI 2019-01-30 14:50:00 30.92 kg/m2 [facility] Systolic blood 2019-01-30 14:50:00 142 mm[Hg] [facility] pressure [facility] Diastolic blood 2019-01-30 14:50:00 84 mm[Hg] [facility] Heart rate 2019-01-30 14:50:00 85 /min [facility] Body temperature 2019-01-30 14:50:00 36.56 Mi [facility] Body height 2019-01-30 14:50:00 170.2 cm [facility] Body weight 2019-01-30 14:50:00 89.54 kg [facility] BMI 2019-01-30 14:50:00 30.92 kg/m2 [facility] Procedures Procedure Date / Time Performing Clinician Source Performed PSA ULTRASENSITIVE 2022-09-23 16:21:47 [facility] COMPREHENSIVE METABOLIC 2021-10-27 17:45:00 Treva Soriano [facility] PANEL Medicine PSA 2021-10-27 17:45:00 Treva Soriano [facility] TESTOSTERONE 2021-10-27 17:45:00 [facility] CBC W/AUTO DIFF WITH 2021-10-27 17:45:00 Treva Soriano [facility] VITAMIN D 25 HYDROXY 2021-10-27 17:45:00 [facility] CBC W/AUTO DIFF WITH 2021-10-27 12:45:00 [facility] COMPREHENSIVE METABOLIC 2021-10-27 12:45:00 [facility] Medicine PSA 2021-10-27 12:45:00 [facility] TESTOSTERONE 2021-10-27 12:45:00 [facility] VITAMIN D 25 HYDROXY 2021-10-27 12:45:00 [facility] LIPID PANEL 2020-01-03 16:07:00 Pretty Salas [facility] HEMOGLOBIN A1C 2020-01-03 16:07:00 Pretty Salas [facility] CBC W/AUTO DIFF WITH 2020-01-03 16:07:00 Singh Salashra [facility] Medicine AMB REF TO INFUSION 2017-10-02 13:51:26 [facility] mary [facility] Medicine Plan of Care Planned Activity Planned Date Details Comments Source Future Scheduled 2023-02-04 INFLUENZA VACCINE [facility] Test 00:00:00 (Season Ended) [code Medical Center = INFLUENZA VACCINE (Season Ended)] Future Scheduled 2023-02-[address] [facility] Test 00:00:00 (Season Ended) [code Medical Center = INFLUENZA VACCINE (Season Ended)] Future Scheduled 2022-09-23 COVID-19 Vaccine [facility] Test 14:45:04 (#1) [code = of Medicine COVID-19 Vaccine (#1)] Future Scheduled 2022-09-23 Fall Screen [code = [employer] Test 14:45:04 Fall Screen] of Medicine Future Scheduled 2022-09-23 Pneumococcal 65+ (2 [employer] Test 14:45:04 - PCV) [code = of Medicine Pneumococcal 65+ (2 - PCV)] Future Scheduled 2022-09-23 BMI Follow Up Plan [facility] [place] Test 14:45:04 [code = BMI Follow of Medici ne Up Plan] Future Scheduled 2022-09-23 Screening for [facility] Test 14:45:04 malignant neoplasm of Medici ne of colon (procedure) [code = 770797873] Future Scheduled 2022-09-23 FLU VACCINE > 6 [facility] Test 14:45:04 MONTHS [code = FLU of Medici ne VACCINE > 6 MONTHS] Future Scheduled 2022-09-23 Medicare Awv [facility] [employer] Test 14:45:04 (Subsequent) [code = of Medi cine Medicare Awv (Subsequent)] Future Scheduled 2022-09-23 TETANUS SHOT (ADULT) [facility] Test 14:45:04 [code = TETANUS SHOT of Medi cine (ADULT)] Future Scheduled 2022-06-[address] [facility] Test 00:00:00 (12+) [code = Medical Center DEPRESSION SCREENING (12+)] Future Scheduled 2022-06-06 FALLS RISK SCREENING [facility] Test 00:00:00 [code = FALLS RISK Medical enter SCREENING] Future Scheduled 2022-06-[address] [facility] Test 00:00:00 (12+) [code = Medical Center DEPRESSION SCREENING (12+)] Future Scheduled 2022-06-06 FALLS RISK SCREENING [facility] Test 00:00:00 [code = FALLS RISK Medical C enter SCREENING] Future Scheduled 2021-10-28 COVID-19 Vaccine [facility] [facility] 09:09:21 (#1) [code = of Medicine COVID-19 Vaccine (#1)] Future Scheduled 2021-10-28 Pneumococcal 65+ (2 [employer] Test 09:09:21 - PCV) [code = of Medicine Pneumococcal 65+ (2 - PCV)] Future Scheduled 2021-10-28 FLU VACCINE > 6 [facility] Test 09:09:21 MONTHS [code = FLU of Medici ne VACCINE > 6 MONTHS] Future Scheduled 2021-10-28 BMI FOLLOW UP PLAN [employer] Test 09:09:21 [code = BMI FOLLOW of Medici ne UP PLAN] Future Scheduled 2021-10-28 FALL SCREEN [code = [employer] Test 09:09:21 FALL SCREEN] of Medicine Future Scheduled 2021-10-28 MEDICARE AWV [facility] [employer] [facility] 09:09:21 (Subsequent) [code = of Medi cine MEDICARE AWV (Subsequent)] Future Scheduled 2021-10-28 Screening for [facility] Test 09:09:21 malignant neoplasm of Medici ne of colon (procedure) [code = 192990280] Future Scheduled 2021-10-28 TETANUS SHOT (ADULT) [employer] Test 09:09:21 [code = TETANUS SHOT of Medi cine (ADULT)] Future Scheduled 2021-02-05 COVID-19 Vaccine (1) [employer] Test 06:28:32 [code = COVID-19 of Medicine Vaccine (1)] Future Scheduled 2021-02-05 FLU VACCINE > 6 [facility] Test 06:28:32 MONTHS [code = FLU of Medici ne VACCINE > 6 MONTHS] Future Scheduled 2021-02-05 BMI FOLLOW UP PLAN [employer] Test 06:28:32 [code = BMI FOLLOW of Medici ne UP PLAN] Future Scheduled 2021-02-05 FALL SCREEN [code = [employer] Test 06:28:32 FALL SCREEN] of Medicine Future Scheduled 2021-02-05 MEDICARE AWV [facility] [employer] Test 06:28:32 (Subsequent) [code = of Medi cine MEDICARE AWV (Subsequent)] Future Scheduled 2021-02-05 Screening for [facility] Test 06:28:32 malignant neoplasm of Medici ne of colon (procedure) [code = 572270827] Future Scheduled 2021-02-05 TETANUS SHOT (ADULT) [employer] Test 06:28:32 [code = TETANUS SHOT of Medi cine (ADULT)] Future Scheduled 2021-02-05 COVID-19 Vaccine (1) [employer] Test 06:28:32 [code = COVID-19 of Medicine Vaccine (1)] Future Scheduled 2021-02-05 FLU VACCINE > 6 [facility] Test 06:28:32 MONTHS [code = FLU of Medici ne VACCINE > 6 MONTHS] Future Scheduled 2021-02-05 BMI FOLLOW UP PLAN [employer] Test 06:28:32 [code = BMI FOLLOW of Medici ne UP PLAN] Future Scheduled 2021-02-05 FALL SCREEN [code = [employer] Test 06:28:32 FALL SCREEN] of Medicine Future Scheduled 2021-02-05 MEDICARE AWV [facility] [employer] Test 06:28:32 (Subsequent) [code = of Medi cine MEDICARE AWV (Subsequent)] Future Scheduled 2021-02-05 Screening for [facility] Test 06:28:32 malignant neoplasm of Medici ne of colon (procedure) [code = 199770976] Future Scheduled 2021-02-05 TETANUS SHOT (ADULT) [employer] Test 06:28:32 [code = TETANUS SHOT of Medi cine (ADULT)] Future Scheduled 2021-01-30 CBC W/AUTO DIFF WITH Ordered: [employer] Test 12:15:28 PLATELETS [code = 01/30/2021 of Medicin e 45936-9] Future Scheduled 2021-01-30 COMPREHENSIVE Ordered: [facility] Test 12:15:28 METABOLIC PANEL 01/30/2021 of Medicine [code = 12586-1] Future Scheduled 2021-01-30 PSA [code = 2857-1] Ordered: [employer] [facility] 12:15:28 01/30/2021 of Medicine Future Scheduled 2021-01-30 CBC W/AUTO DIFF WITH Ordered: [employer] [facility] 12:15:28 PLATELETS [code = 01/30/2021 of Medicin e 14510-1] Future Scheduled 2021-01-30 COMPREHENSIVE Ordered: [facility] Test 12:15:28 METABOLIC PANEL 01/30/2021 of Medicine [code = 81607-3] Future Scheduled 2021-01-30 PSA [code = 2857-1] Ordered: [employer] [facility] 12:15:28 01/30/2021 of Medicine Future Scheduled 2021-01-30 TESTOSTERONE [code = Ordered: [employer] Test 12:15:28 2986-8] 01/30/2021 of Medicine Future Scheduled 2021-01-30 TESTOSTERONE [code = Ordered: [employer] Test 12:15:28 2986-8] 01/30/2021 of Medicine Future Scheduled 2021-01-27 COVID-19 Vaccine (1) [employer] Test 16:14:27 [code = COVID-19 of Medicine Vaccine (1)] Future Scheduled 2021-01-27 FLU VACCINE > 6 [facility] Test 16:14:27 MONTHS [code = FLU of Medici ne VACCINE > 6 MONTHS] Future Scheduled 2021-01-27 BMI FOLLOW UP PLAN [employer] [facility] 16:14:27 [code = BMI FOLLOW of Medici ne UP PLAN] Future Scheduled 2021-01-27 FALL SCREEN [code = [employer] Test 16:14:27 FALL SCREEN] of Medicine Future Scheduled 2021-01-27 MEDICARE AWV [facility] [employer] Test 16:14:27 (Subsequent) [code = of Medi cine MEDICARE AWV (Subsequent)] Future Scheduled 2021-01-27 Screening for [facility] Test 16:14:27 malignant neoplasm of Medici ne of colon (procedure) [code = 753433959] Future Scheduled 2021-01-27 TETANUS SHOT (ADULT) [employer] Test 16:14:27 [code = TETANUS SHOT of Medi cine (ADULT)] Future Scheduled 2021-01-27 DEXA BONE DENSITY 1 Occurrences [employer] Test 16:13:39 SPINE AND HIP [code starting of Medic ine = 99570] 01/27/2021 until 01/27/2022 Future Scheduled 2021-01-27 LIPID PANEL [code = Ordered: [employer] Test 15:59:46 34293-3] 01/27/2021 of Medicine Future Scheduled 2021-01-27 HEMOGLOBIN A1C [code Ordered: [employer] Test 15:59:46 = 4548-4] 01/27/2021 of Medicine Future Scheduled 2021-01-27 BMI FOLLOW UP PLAN [employer] [facility] 14:00:42 [code = BMI FOLLOW of Medici ne UP PLAN] Future Scheduled 2021-01-27 MEDICARE AWV [facility] [employer] Test 13:59:47 (Subsequent) [code = of Medi cine MEDICARE AWV (Subsequent)] Future Scheduled 2021-01-27 COVID-19 Vaccine (1) [employer] [facility] 13:56:18 [code = COVID-19 of Medicine Vaccine (1)] Future Scheduled 2021-01-27 Hepatitis C [facility] [employer] Test 13:56:18 screening of Medicine (procedure) [code = 002442992] Future Scheduled 2021-01-27 FALL SCREEN [code = [employer] Test 13:56:18 FALL SCREEN] of Medicine Future Scheduled 2021-01-27 FLU VACCINE > 6 [facility] Test 13:56:18 MONTHS [code = FLU of Medici ne VACCINE > 6 MONTHS] Future Scheduled 2021-01-27 Screening for [facility] Test 13:56:18 malignant neoplasm of Medici ne of colon (procedure) [code = 760390660] Future Scheduled 2021-01-27 TETANUS SHOT (ADULT) [employer] Test 13:56:18 [code = TETANUS SHOT of Medi cine (ADULT)] Future Scheduled 2018-07-[address] [facility] 00:00:00 WELLNESS (YEAR 2 or Medical Center FIRST YEAR if no IPPE) [code = MEDICARE ANNUAL WELLNESS (YEAR 2 or FIRST YEAR if no IPPE)] Future Scheduled 2018-07-[address] [facility] 00:00:00 WELLNESS (YEAR 2 or Medical Center FIRST YEAR if no IPPE) [code = MEDICARE ANNUAL WELLNESS (YEAR 2 or FIRST YEAR if no IPPE)] Future Scheduled 2017 PNEUMOCOCCAL 65+ YRS [facility] Test 00:00:00 (1 - PCV) [code = Medical Ce nter PNEUMOCOCCAL 65+ YRS (1 - PCV)] Future Scheduled 2017 PNEUMOCOCCAL 65+ YRS [facility] Test 00:00:00 (1 - PCV) [code = Medical Ce nter PNEUMOCOCCAL 65+ YRS (1 - PCV)] Future Scheduled 2002 SHINGLES VACCINES ([address] [facility] Test 00:00:00 of 2) [code = Medical Center SHINGLES VACCINES (1 of 2)] Future Scheduled 2002 SHINGLES VACCINES ([address] [facility] Test 00:00:00 of 2) [code = Medical Center SHINGLES VACCINES (1 of 2)] Future Scheduled 1971 DTAP/TDAP/TD [facility] 00:[facility] VACCINES (1 - Tdap) Medical Center [code = DTAP/TDAP/TD VACCINES (1 - Tdap)] Future Scheduled 1971 DTAP/TDAP/TD [facility] 00:00:00 VACCINES (1 - Tdap) Medical Center [code = DTAP/TDAP/TD VACCINES (1 - Tdap)] Future Scheduled [address] [facility] 00:00:00 SCREENING [code = Medical Ce nter HEPATITIS C SCREENING] Future Scheduled [address] [facility] 00:00:00 SCREENING [code = Medical Ce nter HEPATITIS C SCREENING] Future Scheduled [address] [facility] Test 00:00:00 Counseling and Medical Cente r Screening (12+) [code = Tobacco Cessation Counseling and Screening (12+)] Future Scheduled [address] [facility] Test 00:00:00 Counseling and Medical Cente r Screening (12+) [code = Tobacco Cessation Counseling and Screening (12+)] Future Scheduled 1953-01-08 COVID-[address] [facility] Test 00:00:00 (#1) [code = Medical Center COVID-19 VACCINE (#1)] Future Scheduled 1953-01-08 COVID-[address] [facility] Test 00:00:00 (#1) [code = Medical Center COVID-19 VACCINE (#1)] Future Scheduled [address] [facility] 00:00:00 (combo) [code = CT Medical C enter Colonography (combo)] Future Scheduled [address] [facility] 00:00:00 malignant neoplasm Medical C enter of colon (procedure) [code = 416165184] Future Scheduled [address] [facility] 00:00:00 malignant neoplasm Medical C enter of colon (procedure) [code = 297482713] Future Scheduled [address] [facility] 00:00:00 malignant neoplasm Medical C enter of colon (procedure) [code = 194183391] Future Scheduled [address] [facility] 00:00:00 malignant neoplasm Medical C enter of colon (procedure) [code = 976492849] Future Scheduled 1952 Sigmoidoscopy [code [facility] 00:00:00 = Sigmoidoscopy] Medical [address] Future Scheduled [address] [facility] 00:00:00 (combo) [code = CT Medical C enter Colonography (combo)] Future Scheduled [address] [facility] 00:00:00 malignant neoplasm Medical C enter of colon (procedure) [code = 569217074] Future Scheduled [address] [facility] 00:00:00 malignant neoplasm Medical C enter of colon (procedure) [code = 150830908] Future Scheduled [address] [facility] 00:00:00 malignant neoplasm Medical C enter of colon (procedure) [code = 338819361] Future Scheduled [address] [facility] 00:00:00 malignant neoplasm Medical C enter of colon (procedure) [code = 717075692] Future Scheduled 1952 Sigmoidoscopy [code [facility] Test 00:00:00 = Sigmoidoscopy] Medical [address] Future Scheduled MEDICARE AWV [code = [facility] Test MEDICARE AWV] of Medicine Future Scheduled BMI FOLLOW UP PLAN [facility] Test [code = BMI FOLLOW of Medici ne UP PLAN] Future Scheduled HEPATITIS C [facility] [employer] Test SCREENING [code = of Medicin e HEPATITIS C SCREENING] Future Scheduled AAA Screen [code = [facility] Test AAA Screen] of Medicine Future Scheduled FLU VACCINE > 6 [facility] Test MONTHS [code = FLU of Medici ne VACCINE > 6 MONTHS] Future Scheduled COLON CANCER [facility] [employer] Test SCREENING: of Medicine COLONOSCOPY [code = COLON CANCER SCREENING: COLONOSCOPY] Future Scheduled FALL SCREEN [code = [employer] [facility] FALL SCREEN] of Medicine Future Scheduled TETANUS SHOT (ADULT) [employer] Test [code = TETANUS SHOT of Medi cine (ADULT)] Future Scheduled MEDICARE AWV [code = [employer] Test MEDICARE AWV] of Medicine Future Scheduled BMI FOLLOW UP PLAN [employer] Test [code = BMI FOLLOW of Medici ne UP PLAN] Future Scheduled HEPATITIS C [facility] [employer] Test SCREENING [code = of Medicin e HEPATITIS C SCREENING] Future Scheduled AAA Screen [code = [employer] [facility] AAA Screen] of Medicine Future Scheduled COLON CANCER [facility] [employer] Test SCREENING: of Medicine COLONOSCOPY [code = COLON CANCER SCREENING: COLONOSCOPY] Future Scheduled FALL SCREEN [code = [employer] [facility] FALL SCREEN] of Medicine Future Scheduled TETANUS SHOT (ADULT) [employer] Test [code = TETANUS SHOT of Medi cine (ADULT)] Future Scheduled PSA [code = 2857-1] Ordered: [employer] Test 07/27/2019 of Medicine Future Scheduled CBC W/AUTO DIFF WITH Ordered: [employer] [facility] PLATELETS [code = 07/27/2019 of Medicin e 77387-4] Future Scheduled COMPREHENSIVE Ordered: [facility] Test METABOLIC PANEL 07/27/2019 of Medicine [code = 69868-2] Future Scheduled TESTOSTERONE [code = Ordered: [employer] [facility] 2986-8] 07/27/2019 of Medicine Future Scheduled BMI FOLLOW UP PLAN [employer] Test [code = BMI FOLLOW of Medici ne UP PLAN] Future Scheduled HEPATITIS C [facility] [employer] Test SCREENING [code = of Medicin e HEPATITIS C SCREENING] Future Scheduled MEDICARE AWV [facility] [employer] Test (Initial) [code = of Medicin e MEDICARE AWV (Initial)] Future Scheduled AAA Screen [code = [employer] [facility] AAA Screen] of Medicine Future Scheduled COLON CANCER [facility] [employer] Test SCREENING: of Medicine COLONOSCOPY [code = COLON CANCER SCREENING: COLONOSCOPY] Future Scheduled FALL SCREEN [code = [employer] [facility] FALL SCREEN] of Medicine Future Scheduled TETANUS SHOT (ADULT) [employer] Test [code = TETANUS SHOT of Medi cine (ADULT)] Future Scheduled HEPATITIS C [facility] [employer] Test SCREENING [code = of Medicin e HEPATITIS C SCREENING] Future Scheduled MEDICARE AWV [facility] [employer] [facility] (Initial) [code = of Medicin e MEDICARE AWV (Initial)] Future Scheduled AAA Screen [code = [employer] [facility] AAA Screen] of Medicine Future Scheduled FLU VACCINE > 6 [facility] Test MONTHS [code = FLU of Medici ne VACCINE > 6 MONTHS] Future Scheduled BMI FOLLOW UP PLAN [employer] Test [code = BMI FOLLOW of Medici ne UP PLAN] Future Scheduled FALL SCREEN [code = [employer] [facility] FALL SCREEN] of Medicine Future Scheduled COLON CANCER [facility] [employer] Test SCREENING: of Medicine COLONOSCOPY [code = COLON CANCER SCREENING: COLONOSCOPY] Future Scheduled TETANUS SHOT (ADULT) [employer] Test [code = TETANUS SHOT of Medi cine (ADULT)] Future Scheduled PSA [code = 2857-1] Ordered: [employer] Test 01/25/2020 of Medicine Future Scheduled TESTOSTERONE [code = Ordered: [employer] [facility] 2986-8] 01/25/2020 of Medicine Future Scheduled CBC W/AUTO DIFF WITH Ordered: [employer] [facility] PLATELETS [code = 01/25/2020 of Medicin e 86588-9] Future Scheduled COMPREHENSIVE Ordered: [facility] [employer] METABOLIC PANEL 01/25/2020 of Medicine [code = 54698-8] Future Scheduled HEPATITIS C [facility] [employer] Test SCREENING [code = of Medicin e HEPATITIS C SCREENING] Future Scheduled FLU VACCINE > 6 [facility] Test MONTHS [code = FLU of Medici ne VACCINE > 6 MONTHS] Future Scheduled BMI FOLLOW UP PLAN [employer] Test [code = BMI FOLLOW of Medici ne UP PLAN] Future Scheduled FALL SCREEN [code = [employer] [facility] FALL SCREEN] of Medicine Future Scheduled MEDICARE AWV [facility] [employer] Test (Subsequent) [code = of Medi cine MEDICARE AWV (Subsequent)] Future Scheduled COLON CANCER [facility] [employer] Test SCREENING: of Medicine COLONOSCOPY [code = COLON CANCER SCREENING: COLONOSCOPY] Future Scheduled TETANUS SHOT (ADULT) [employer] Test [code = TETANUS SHOT of Medi cine (ADULT)] Future Scheduled CBC W/AUTO DIFF WITH Ordered: [employer] [facility] PLATELETS [code = 08/01/2020 of Medicin e 60452-7] Future Scheduled COMPREHENSIVE Ordered: [facility] Test METABOLIC PANEL 08/01/2020 of Medicine [code = 48999-4] Future Scheduled PSA [code = 2857-1] Ordered: [employer] [facility] 08/01/2020 of Medicine Future Scheduled TESTOSTERONE [code = Ordered: [employer] [facility] 2986-8] 08/01/2020 of Medicine Future Scheduled COVID-19 Vaccine [facility] Test Evaluation [code = of Medici ne COVID-19 Vaccine Evaluation] Future Scheduled HEPATITIS C [facility] [employer] Test SCREENING [code = of Medicin e HEPATITIS C SCREENING] Future Scheduled FLU VACCINE > 6 [facility] Test MONTHS [code = FLU of Medici ne VACCINE > 6 MONTHS] Future Scheduled BMI FOLLOW UP PLAN [employer] Test [code = BMI FOLLOW of Medici ne UP PLAN] Future Scheduled FALL SCREEN [code = [employer] [facility] FALL SCREEN] of Medicine Future Scheduled MEDICARE AWV [facility] [employer] Test (Subsequent) [code = of Medi cine MEDICARE AWV (Subsequent)] Future Scheduled COLON CANCER [facility] [employer] Test SCREENING: of Medicine COLONOSCOPY [code = COLON CANCER SCREENING: COLONOSCOPY] Future Scheduled TETANUS SHOT (ADULT) [employer] Test [code = TETANUS SHOT of Medi cine (ADULT)] Future Scheduled CBC W/AUTO DIFF WITH Ordered: [employer] [facility] PLATELETS [code = 01/30/2019 of Medicin e 98731-5] Future Scheduled COMPREHENSIVE Ordered: [facility] Test METABOLIC PANEL 01/30/2019 of Medicine [code = 68333-5] Future Scheduled MAGNESIUM [code = Ordered: [employer] [facility] 28822-9] 01/30/2019 of Medicine Future Scheduled PSA [code = 2857-1] Ordered: [employer] [facility] 01/30/2019 of Medicine Future Scheduled TESTOSTERONE [code = Ordered: [employer] [facility] 2986-8] 01/30/2019 of Medicine Future Scheduled MEDICARE AWV [code = [employer] [facility] MEDICARE AWV] of Medicine Future Scheduled BMI FOLLOW UP PLAN [employer] Test [code = BMI FOLLOW of Medici ne UP PLAN] Future Scheduled HEPATITIS C [facility] [employer] Test SCREENING [code = of Medicin e HEPATITIS C SCREENING] Future Scheduled AAA Screen [code = [employer] [facility] AAA Screen] of Medicine Future Scheduled FLU VACCINE > 6 [facility] Test MONTHS [code = FLU of Medici ne VACCINE > 6 MONTHS] Future Scheduled COLON CANCER [facility] [employer] Test SCREENING: of Medicine COLONOSCOPY [code = COLON CANCER SCREENING: COLONOSCOPY] Future Scheduled FALL SCREEN [code = [employer] [facility] FALL SCREEN] of Medicine Future Scheduled TETANUS SHOT (ADULT) [employer] Test [code = TETANUS SHOT of Medi cine (ADULT)] Future Scheduled US ABDOMINAL AORTA 1 Occurrences [employer] Test [code = 41826] starting of Medicine 01/03/2020 until 01/02/[address] ABDOMEN PELVIS W 1 Occurrences [facility] Test CONTRAST [code = starting of Medicine 30167-9] 01/25/2020 until 08/24/2020 Future Scheduled US ARTERIAL LEGS 1 Occurrences [facility] Test BILATERAL [code = starting of Medicin e 64823-1] 02/16/2019 until 02/17/2020 Encounters Start End Encounter Admission Attending Care Care Encounter Source Date/Time Date/Time Type Type Clinicians Facility Department ID 2022-07-28 Outpatient Guzman, STLMLC STLC [id number] Common 16:21:01 Will [id number] [facility] 2022-04-06 Outpatient Guzman, STLMLC STLC [id number] Common 10:13:05 Will [id number] [facility] 2022-04-02 Outpatient Guzman, STLMLC STLC [id number] Common 09:41:02 Will [id number] [facility] 2022-02-03 Outpatient Guzman, STLMLC STLC [id number] Common 10:33:02 Will [id number] [facility] 2022-10-26 2022-10-26 Outpatient CASSIE FISH [facility] [id number] [facility] 00:00:00 00:00:00 2022-09-23 2022-09-23 Office JESSA KRUGER [id number] [facility] 14:55:21 16:31:32 Visit KARYN AMBULATOR 350.1.13.21 College Y 0.2.7.2.686 of [id number] Medi rosalind 300 e 2022-06-24 2022-06-24 (TEL) STLC STLC [id number] Co mmon 00:00:00 00:00:00 [facility] 2022-04-09 2022-04-09 (TEL) STLMLC STLMLC [id number] Co mmon 00:00:00 00:00:00 [facility] 2022-04-06 2022-04-06 OFFICE STLMLC STLMLC [id number] Co mmon 00:00:00 00:00:00 VISIT Spirit ESTAB PT - [facility] LEVEL 4 [facility] 2022-04-06 2022-04-06 SUB ANNUAL STLMLC STLMLC [id number] Common 00:00:00 00:00:00 MCR [facility] WELLNESS - [facility] VISIT [facility] 2022-02-03 2022-02-03 OFFICE STLMLC STLC [id number] Co mmon 00:00:00 00:00:00 VISIT NEW Spir it PT LEVEL 4 - [facility] 2021-10-27 2021-10-27 Office TREVA SORIANO [facility] [id number] [facility] 11:03:09 14:51:26 Visit Zay 350.1.13.21 Co llege 0.2.7.2.686 of [id number] Medi rosalind 504 e 2021-10-27 2021-10-27 Historical Cassie Soriano [facility] [id number] [facility] 00[facility]00 Encounter [facility] 2021-04-09 2021-04-09 [id number] 11:10:49 11:10:49 Colleg e of Medicin e 2021-01-30 2021-01-30 Office Treva Soriano [facility] [id number] [facility] 10:37:10 13:39:29 Visit Edadelaida Zay 350.1.13.21 Co llege 0.2.7.2.686 of [id number] Medi rosalind 530 e 2021-01-27 2021-01-27 Office JESSA Salas [id number] [facility] 14:04:32 17:18:52 Visit Pretty AMBULATOR 350.1.13.21 College Y 0.2.7.2.686 of [id number] Medi rosalind 300 e 2021-01-27 2021-01-27 Office Maureen Taylor BCM [id number] [facility] 13:09:59 14:09:59 Visit Maureen Taylor AMBULATOR 350.1.13.21 College Y 0.2.7.2.686 of [id number] [facility] rosalind 300 e 2020-08-01 2020-08-01 Office Treva Soriano [facility] [id number] [facility] 10:26:52 12:43:40 Visit Edward Zay 350.1.13.21 Co llege 0.2.7.2.686 of [id number] [facility] rosalind 530 e 2020-07-25 2020-07-25 Outpatient CASSIE SORIANO [facility] [id number] SLE 00:00:00 00:00:00 2020-01-25 2020-01-25 Office Treva Soriano [facility] [id number] 09:23:56 12:15:44 Visit Edward Zay 350.1.13.21 0.2.7.2.686 [id number] 530 2020-01-25 2020-01-25 Office Treva Soraino [facility] [id number] [facility] 09:23:56 12:15:44 Visit Edward Zay 350.1.13.21 Co llege 0.2.7.2.686 of [id number] [facility] rosalind 530 e 2020-01-03 2020-01-03 Office JESSA Salas [id number] 09:51:43 16:38:22 Visit Pretty AMBULATOR 350.1.13.21 Y 0.2.7.2.686 [id number] 300 2020-01-03 2020-01-03 Office JESSA Salas 1.2.840.114 [id number] [facility] 09:51:43 16:38:22 Visit Rpetty AMBULATOR 350.1.13.21 College Y 0.2.7.2.686 of [id number] [facility] 300 e 2019-07-27 2019-07-27 Office Cassie Soriano [facility] 1.2.840.114 [id number] 09:57:00 10:27:00 Visit E Zay 350.1.13.21 0.2.7.2.686 [id number] 530 2019-07-27 2019-07-27 Office Cassie Soriano [facility] 1.2.840.114 [id number] [facility] 09:57:00 10:27:00 Visit E Zay 350.1.13.21 Co llege 0.2.7.2.686 of [id number] [facility] 530 e 2019-03-13 2019-03-13 Office JESSA Salas 1.2.840.114 [id number] 12:18:22 13:18:10 Visit Pretty AMBULATOR 350.1.13.21 Y 0.2.7.2.686 [id number] 300 2019-03-13 2019-03-13 Office JESSA Salas 1.2.840.[id number] [place] [address] 12:18:22 13:18:10 Visit Pretty AMBULATOR 350.1.13.21 College Y 0.2.7.2.686 of [id number] [facility] 300 e 2019-02-16 2019-02-16 Office JESSA Salas 1.2.840.114 [id number] 10:36:06 11:06:06 Visit Pretty AMBULATOR 350.1.13.21 Y 0.2.7.2.686 [id number] 300 2019-02-16 2019-02-16 Office JESSA Salas 1.2.840.114 [id number] [facility] 10:36:06 11:06:06 Visit Pretty AMBULATOR 350.1.13.21 College Y 0.2.7.2.686 of [id number] [facility] 300 e 2019-01-30 2019-01-30 Office Cassie Soriano 1.2.840.114 [id number] 08:38:08 11:01:51 Visit E AMBULATOR 350.1.13.21 Y 0.2.7.2.686 [id number] 360 2019-01-30 2019-01-30 Office Cassie Soriano [facility] 1.2.840.114 [id number] [facility] 08:38:08 11:01:51 Visit E AMBULATOR 350.1.13.21 College Y 0.2.7.2.686 of [id number] [facility] 360 e 2017-09-30 2017-09-30 Outpatient TREVA SORIANO [facility] [id number] [facility] 14:19:01 16:52:13 [employer] Results Test Description Test Time Test Comments Results Result Comments Source VITAMIN D 25 HYDROXY 2021-10-28 11:55:46 Test Item Value Reference Range Interpretation Comme nts VITAMIN D 25-HYDROXY SEE BELOW NG/ML NOT E: 25-HYDROXYVITAMIN D (test code = 1988-) ASSAY I NCLUDES 25-HYDROXYVITAM IN D2 AND D3. METHODOLOGY IS CHEMILUMINESCENT IMMUNOASSAY. $$ $$$ INTERPRETIVE RANGES $$$$$PED IATRIC (<17 YEARS) . . . . . . . . . . . NG/ML 20-100ADU LT: INSUFFICIENT . . . . . . . . . . . . . . NG/ML <20 SUBOP TIMAL . . . . . . . . . . . . . . . NG/ML 20-29 OPTIMAL . . . . . . . . . . . . . . . . . NG/ML 30-100 Unless Otherwise Indic ated, All Testing Perform ed At: [facility], [address] [place] [address] Laboratory Dire ctor: Alexis Elmore M.D. CLIA Number [id number] [place]. [id number] BONY (test code = BONY) PT FASTING [id number] 11:45:31 Test Item Value Reference Range Interpretation Comments TESTOSTERONE LEVEL See_Comment L Unless O therwise (test code = 2986-8) Indicat ed, All Testing Perform ed At: [facility], [address] [place] [address] Laborator y Director: Alexis Elmore M.D. CLIA Number [id number] [place] [id number] [Automated mess age] The system [employer] generated this result transmit gary reference range : 300 - 720 NG/DL. Th e reference range was not used to interpret this result as normal/abnormal . BONY (test code = BONY) PT FASTING Lab Interpretation Abnormal (test code = 87228-9) [facility] 11:17:49PSA<0.02<=4.00 NG/MLCPL [facility] HospitalCOMPREHENSIVE METABOLIC [id number] 10:55:51 Test Item Value Reference Range Interpretation Comments GLUCOSE (test code = See_Comment [Autom ated message] 2345-7) The system [employer] generated this result transmitted ref erence range: 70 - 99 MG/DL. The reference r harsh was not used to interpret this result as normal/abnor mal. BLOOD UREA NITROGEN See_Comment [Automa gary message] (test code = 3091-6) The s tem which generated this result transmitted ref erence range: 8 - 23 M G/DL. The reference r harsh was not used to interpret this result as normal/abnor mal. CREATININE (test code See_Comment [Auto mated message] = 2160-0) The system [employer] generated this result transmitted ref erence range: 0.80 - 1 .40 MG/DL. The refe rence range was not u sed to interpret this result as normal/abnor mal. EGFR (test code = See_Comment [Automate d message] 39288-7) The system [employer] generated this result transmitted ref erence range: >60 ML/MIN/1.73. Th e reference range was not used to int erpret this result as normal/abnormal . BUN/CREAT RATIO (test See_Comment [Auto mated message] code = 3097-3) The system [facility] generated this result transmitted ref erence range: 6 - 28 R ATIO. The reference r harsh was not used to interpret this result as normal/abnor mal. SODIUM (test code = See_Comment [Automa gary message] 2951-2) The system [employer] generated this result transmitted ref erence range: 133 - 14 6 MEQ/L. The refe rence range was not u sed to interpret this result as normal/abnor mal. POTASSIUM (test code See_Comment [Autom ated message] = 2823-3) The system [employer] generated this result transmitted ref erence range: 3.5 - 5. 4 MEQ/L. The refe rence range was not u sed to interpret this result as normal/abnor mal. CHLORIDE (test code = See_Comment [Auto mated message] 2075-0) The system [employer] generated this result transmitted ref erence range: 95 - 107 MEQ/L. The reference r harsh was not used to interpret this result as normal/abnor mal. CO2 (test code = See_Comment [Automated message] 1963-8) The system [employer] generated this result transmitted ref erence range: 19 - 31 MEQ/L. The reference r harsh was not used to interpret this result as normal/abnor mal. CALCIUM (test code = See_Comment [Autom ated message] 73851-9) The system [employer] generated this result transmitted ref erence range: 8.5 - 10 .5 MG/DL. The refe rence range was not u sed to interpret this result as normal/abnor mal. PROTEIN TOTAL (test See_Comment [Automa gary message] code = 2885-2) The system [facility] generated this result transmitted ref erence range: 6.1 - 8. 3 G/DL. The reference r harsh was not used to interpret this result as normal/abnor mal. ALBUMIN (test code = See_Comment [Autom ated message] 24714-9) The system [employer] generated this result transmitted ref erence range: 3.5 - 5. 2 G/DL. The reference r harsh was not used to interpret this result as normal/abnor mal. GLOBULINS, SERUM, See_Comment [Automate d message] TOTAL (test code = The syste m which 27664-0) generated this result transmitted ref erence range: 1.9 - 3. 7 G/DL. The reference r harsh was not used to interpret this result as normal/abnor mal. A/G RATIO (test code See_Comment [Autom ated message] = 1759-0) The system [employer] generated this result transmitted ref erence range: 1.0 - 2. 6 RATIO. The refe rence range was not u sed to interpret this result as normal/abnor mal. BILIRUBIN TOTAL (test See_Comment [Auto mated message] code = 1974-2) The system [facility] generated this result transmitted ref erence range: <=1.2 MG /DL. The reference r harsh was not used to interpret this result as normal/abnor mal. ALKALINE PHOSPHATASE 75 U/L 40-125 (test code = 6768-6) AST (SGOT) (test code 18 U/L 9-50 = 1920-8) ALT (SGPT) (test code 26 U/L 5-50 Unles s Otherwise = 1744-2) Indicated, All Testing Performed At: [facility], [address] [place] [address] Laborator y Director: Alexis Elmore M.D. CLIA Number [id number] [place]. [id number] BONY (test code = BONY) PT FASTING [facility] W/AUTO DIFF WITH [id number] 10:04:28 Test Item Value Reference Range Interpretation Comments WHITE BLOOD CELL COUNT See_Comment [Aut omated message] (test code = 23693-5) The sy stem which generated this result transmit gary reference range : 3.5 - 11.0 K/UL. Th e reference range was not used to interpret this result as normal/abnormal . RED BLOOD CELL COUNT See_Comment [Autom ated message] (test code = 79192-9) The sy stem which generated this result transmit gary reference range : 4.50 - 6.10 M/U L. The reference r harsh was not used to interpret this result as normal/abnormal . HEMOGLOBIN (test code = See_Comment L [Au tomated message] 718-7) The system [facility] h generated this result transmit gary reference range : 13.5 - 17.0 G/D L. The reference r harsh was not used to interpret this result as normal/abnormal . HEMATOCRIT (test code = 39.5 % 40-51 L ) MEAN CORPUSCULAR VOLUME 87.2 fL 80-99 (test code = 93250-6) MEAN CORPUSCULAR 29.6 PG 25-33 HEMOGLOBIN (test code = 36674-5) MEAN CORPUSCULAR See_Comment [Automated message] HEMOGLOBIN CONC (test The sy stem which code = 82169-3) generated th is result transmit gary reference range : 31.0 - 36.0 G/D L. The reference r harsh was not used to interpret this result as normal/abnormal . RED CELL DISTRIBUTION 13.0 % 11.5-15 WIDTH (test code = 43825-4) NEUTROPHILS % (test 56.4 % code = 83933-2) LYMPHOCYTES % (test 27.8 % code = 65352-7) MONOCYTES % (test code 5.3 % = 11211-9) EOSINOPHILS % (test 8.7 % code = 03490-8) BASOPHILS % (test code 1.6 % = 16156-8) IMMATURE GRANULOCYTES 0.2 % (test code = 36404-2) NUCLEATED RBC'S See_Comment Unless Oth erwise MYELOPEROX STAIN (test Indic ated, All code = 99861-6) Testing Perf ormed At: [facility], [address] [place] [address] Laborator y Director: Alexis Elmore M.D. CLIA Number [id number] [place] [id number] [Automated mess age] The system whic h generated this result transmit gary reference range : 0.00 - 0.11 K/U L. The reference r harsh was not used to interpret this result as normal/abnormal . PLATELET COUNT (test See_Comment [Autom ated message] code = 64789-5) The system [facility] generated this result transmit gary reference range : 130 - 400 K/UL. The reference range was not used to interpret this result as normal/abnormal . NEUTROPHILS ABSOLUTE See_Comment [Autom ated message] COUNT (test code = The [employer] which 40028-3) generated this result transmit gary reference range : 1.50 - 7.50 K/U L. The reference r harsh was not used to interpret this result as normal/abnormal . LYMPHOCYTES ABSOLUTE See_Comment [Autom ated message] COUNT (test code = The syste m which 73520-0) generated this result transmit gary reference range : 1.00 - 4.00 K/U L. The reference r harsh was not used to interpret this result as normal/abnormal . MONOCYTES ABSOLUTE See_Comment [Automat ed message] COUNT (test code = The [employer] m which 83527-7) generated this result transmit gary reference range : 0.20 - 1.00 K/U L. The reference r harsh was not used to interpret this result as normal/abnormal . BASOPHILS ABSOLUTE See_Comment [Automat ed message] COUNT (test code = The syste m which 26546-3) generated this result transmit gary reference range : 0.00 - 0.20 K/U L. The reference r harsh was not used to interpret this result as normal/abnormal . IMMATURE GRANS (ABS) See_Comment [Autom ated message] (test code = 9987) The syste m which generated this result transmit gary reference range : 0.00 - 0.10 K/U L. The reference r harsh was not used to interpret this result as normal/abnormal . BONY (test code = BONY) PT FASTING Lab Interpretation Abnormal (test code = 09505-8) [facility] HospitalCT, [id number] 14:52:00Unlisted Reason for Exam - Click Yes and Enter Reason Below->YesUnlisted Reason for Exam->Prostate cancerWATSON[facility] [place]EName: STEVENSON CABRERA : 1950 Sex: MFINAL REPORT CT of the abdomen and pelvis, with contrast Clinical History: Unlisted Reason for ExamProstate cancer Technique: CT of the abdomen and pelvis is performed with intravenous contrast administration. This exam was performed according to our departmental dose optimization program which includes automated exposure control, adjustment of the mA and/or kV according to patient's size and/or use of iterative reconstructive technique. Comparison Film: January 09, 2019, February 14, 2018 Discussion: Visualized lower thorax is unremarkable. There is a stable 1.7 cm hypodensity in segment 4 of the liver, probably a cyst. No biliary ductal dilatation, gallbladder is normal. The sple en, pancreas, adrenal glands are normal. Kidneys demonstrate no hydronephrosis, mass or radiopaque stone. No evidence of bowel obstruction, or abnormal bowel wall thickening. No pericecal inflammatory change. There is mild colonic diverticulosis. In the pelvis, bladder appears normal. Prostate gland is absent. No mass or lymphadenopathy. There is mild vascular calcification. Bony structures demonstrate mild degenerative changes. Impression: Status post prostatectomy. No recurrent or metastatic disease is identified in the abdomen or pelvis. Colonic diverticulosis. Signed: Les Vasquez MDReport VerifiedDate/Time: 07/25/2020 14:52:10 Reading Location: [address] Ortho Consult Reading Room POCT-CREATININE 2020-07-25 11:06:00 Test Item Value Reference Range Interpretation Comments POC-CREATININE 0.9 mg/dL 0.6-1.3 : TESTED AT [facility] ([facility]) (test [address]LDG code = 1859) [facility] 7 2769: Medical Staff Assistant/Techni leif ID = [id number] for MIGUEL PECK ICA POC-EGFR 84 mL/min/1.73M2 ([facility]) (test code = 1860) LIPID [id number] 10:20:05 Test Item Value Reference Range Interpretation Comments CHOLESTEROL (test code See_Comment [Aut omated message] = 2093-3) The system [facility] generated this result transmitted ref erence range: <200 MG/ DL. The reference range was not used to int erpret this result as normal/abnormal . TRIGLYCERIDES (test See_Comment H [Automa gary message] code = 2571-8) The system [facility] generated this result transmitted ref erence range: <150 MG/ DL. The reference range was not used to int erpret this result as normal/abnormal . HDL CHOLESTEROL (test See_Comment [Auto mated message] code = 2085-9) The system [employer] generated this result transmitted ref erence range: >39 MG/D L. The reference range was not used to int erpret this result as normal/abnormal . LDL CHOLESTEROL See_Comment H NOTE: CALCU LATED LDL CALCULATED (test code = [place] [address]-7) CASSIA-DICKSON METHOD WHICHINCLUDES ADJUSTABLE TRIGLYCERIDE:VL DL CHOLESTEROL RAT IO.THIS FACTOR VARIES B Y MEASURED TRIGLY CERIDE AND NON-HDLCHOL ESTEROL CONCENTRATIONS WITH INCREASED CALCU LATED LDL SEENIN HIGH ER TRIGLYCERIDE OR LOWER NON-HDL SPECIME NS. FOR MOREINFORMATION , SEE CLIENT ANNOUNCE MENT AT [email or web address] [Aut omated message] The sy stem which generated this result transmit gary reference range : <100 MG/DL. The refe rence range was not u sed to interpret this result as normal/abnor mal. LDL/HDL RATIO, SERUM See_Comment Unless Otherwise (test code = 03135-2) [facility], All Testing Performed At: [facility], [address] [place] [address] Laborator y Director: Alexis Elmore M.D. CLIA Number [id number] [place]. [id number] [Autom ated message] The sy stem which generated this result transmit gary reference range : <3.55 RATIO. The refe rence range was not u sed to interpret this result as normal/abnor mal. Lab Interpretation Abnormal (test code = 54914-5) [facility] W/AUTO DIFF WITH [id number] 09:31:05 Test Item Value Reference Range Interpretation Comments WHITE BLOOD CELL COUNT See_Comment [Aut omated message] (test code = 00319-0) The sy stem which generated this result transmitted ref erence range: 3.5 - 10 .0 K/UL. The refer ence range was not u sed to interpret this result as normal/abnor mal. RED BLOOD CELL COUNT See_Comment [Autom ated message] (test code = 29826-7) The sy stem which generated this result transmitted ref erence range: 4.30 - 5 .70 M/UL. The refer ence range was not u sed to interpret this result as normal/abnor mal. HEMOGLOBIN (test code = See_Comment [Au tomated message] 718-7) The system [employer] generated this result transmitted ref erence range: 13.5 - 1 7.0 G/DL. The refer ence range was not u sed to interpret this result as normal/abnor mal. HEMATOCRIT (test code = 40.2 % 38-50 36805-2) MEAN CORPUSCULAR VOLUME 85.7 fL 80-99 (test code = 46560-0) MEAN CORPUSCULAR 29.2 PG 25-34 HEMOGLOBIN (test code = 95097-3) MEAN CORPUSCULAR See_Comment [Automated message] HEMOGLOBIN CONC (test The sy stem which code = 86644-1) generated th is result transmitted ref erence range: 31.0 - 3 6.0 G/DL. The refer ence range was not u sed to interpret this result as normal/abnor mal. RED CELL DISTRIBUTION 13.5 % 11.5-15 WIDTH (test code = 29511-9) NEUTROPHILS % (test code 51.1 % 40-75 = 53735-2) LYMPHOCYTES % (test code 29.4 % 20-45 = 96614-0) MONOCYTES % (test code = 7.0 % 4-12 52852-2) EOSINOPHILS % (test code 10.9 % 0-7 H = 04963-4) BASOPHILS % (test code = 1.6 % 0-2 84824-3) PLATELET COUNT (test See_Comment Unless Otherwise code = 19349-9) Indicated, A ll Testing Perform ed At: [facility], [address] [place] [address] Laborator y Director: Alexis Elmore M.D. CLIA Number [id number] [place]. [id number] [Autom ated message] The sy stem which generated this result transmit gary reference range : 130 - 400 K/UL. The reference range was not used to int erpret this result as normal/abnormal . Lab Interpretation (test Abnormal code = 88932-4) [facility] [id number] 08:36:10 Test Item Value Reference Range Interpretation Comments HEMOGLOBIN A1C (test 5.7 % 4.2-5.6 H Unless Otherwise code = 4548-4) Indicated, Al l Testing Performed At: [facility], [address] [place] [address] Laborator y Director: Alexis Elmore M.D. CLIA Number [id number] [place] o. [id number] Lab Interpretation Abnormal (test code = 31009-6) [facility]/OR JOINT IMAGING, WHOLE [id number] 16:28:00FINAL REPORT PROCEDURE: BONE SCAN, WHOLE BODY CPT CODE: 33062 INDICATION: history of metastatic prostate cancer PROTOCOL: 21.3 mCi of Tc-99m MDP was injected intravenously. Whole body and selected spot images were obtained approximately 3 hours later. FINDINGS: Mildly to moderately increased tracer uptake in knees, feet/ankles. Irregular mild increase within the spine. Irregular mild increase in the left femoral diaphysis. IMPRESSION: 1. No evidence of bony metastatic disease.2.Degenerative and/or traumatic changes in the spine and peripheral joints.3. Likely posttraumatic changes in the left femur. Images for comparison/correlation were CT abd/pelvis 01/09/2019. Signed: Vamsi Muñoz Verified Date/Time: 01/09/2019 16:28:45 Reading Location: [address] MedReading Room RAD, BONE DENSITY [id number] 11:01:00Reason for Exam:->C61, M81.8, [id number] REPORT Bone mineral density study 01/09/2019. HISTORY PROVIDED: C61, M 81.8, T38.7X5A COMPARISON: None available FINDINGS: Evaluation of the left and right femoral necks and lumbar spine was performed utilizing a bone densitometer. Data reflect young adult matched T-scores andage-matched Z scores. IMPRESSION: The left femoral neck bone mineral density is 0.866gm/cm2, the T-score is -1.6, and the Z-score is -0.7. This is suggestive of osteopenia. The right femoral neck totalbone mineral density is 0.834gm/cm2, the T-score is -1.8, and the Z-score is -1.0. This is suggestive of osteopenia. The lumbar spine total bone mineral density is 1.282gm/cm2, the T-score is 0.5, and the Z-score is 0.6. Signed: Angella Cerrato Verified Date/Time: 01/09/2019 11:01:02 Reading Location: [facility] Women CT, CHEST, WITH [id number] 10:42:00FINAL REPORT INDICATION:Restaging for prostate cancer. COMPARISON: None. TECHNIQUE: CT of the Chest, Abdomen and Pelvis WITH intravenous contrast. Enteric contrast was used. The exam was performed according to our department dose-optimization protocol, which includes automated exposure control, adjustments of mA and kV according to patient size. Iterative reconstructions are alsosometimes employed. FINDINGS: THORAX: No supraclavicular, mediastinal, or hilar lymphadenopathy is de monstrated. There is no suspicious pulmonary nodule, pleural effusion, or pleural nodularity. Heart is normal in size and there is no pericardial effusion. Coronary artery calcification noted. Thyroid gland and esophagus unremarkable. ABDOMEN and PELVIS: Patient is status post prostatectomy. No soft tissue nodule or thickening in the prostatectomy bed. No pelvic or retroperitoneal lymphadenopathy is demonstrated. No hydronephrosis. No renal or bladder mass. Diffuse low-attenuation of the liver parenchyma representing steatosis. Benign liver cyst measures 1.2 cm. No liver mass. Gallbladder unremarkable and no biliary ductal dilatation. Pancreas, spleen and adrenal glands unremarkable. No bowel massor bowel wall thickening demonstrated. Diverticuli of the left colon and proximal sigmoid colon noted. No peritoneal free fluid. BONES: No suspicious osseous lesion demonstrated. IMPRESSION: Prostatectomy without evidence of recurrent or metastatic disease. Signed: Alireza Jordanmiss[facility] Verified Date/Time: 01/09/2019 10:42:59 Reading Location: [facility] [id number] Ortho Consult Reading Room . [facility], [id number] 10:42:00FINAL REPORT INDICATION:Restaging for prostate cancer. COMPARISON: None. TECHNIQUE: CT of the Chest, Abdomen and Pelvis WITH intravenous contrast. Enteric contrast was used. The exam was performed according to our department dose-optimization protocol, which includes automated exposure control, adjustments of mA and kV according to patient size. Iterative reconstructions are alsosometimes employed. FINDINGS: THORAX: No supraclavicular, mediastinal, or hilar lymphadenopathy is demonstrated. There is no suspicious pulmonary nodule, pleural effusion, or pleural nodularity. Heart i s normal in size and there is no pericardial effusion. Coronary artery calcification noted. Thyroid gland and esophagus unremarkable. ABDOMEN and PELVIS: Patient is status post prostatectomy. No soft tissue nodule or thickening in the prostatectomy bed. No pelvic or retroperitoneal lymphadenopathy is demonstrated. No hydronephrosis. No renal or bladder mass. Diffuse low-attenuation of the liver parenchyma representing steatosis. Benign liver cyst measures 1.2 cm. No liver mass. Gallbladder unremarkable and no biliary ductal dilatation. Pancreas, spleen and adrenal glands unremarkable. No bowel massor bowel wall thickening demonstrated. Diverticuli of the left colon and proximal sigmoid colon noted. No peritoneal free fluid. BONES: No suspicious osseous lesion demonstrated. IMPRESSION: Prostatectomy without evidence of recurrent or metastatic disease. Signed: Alireza Jordan MDReport Verified Da te/Time: 01/09/2019 10:42:59 Reading Location: [address] Ortho Consult Reading Room [id number] 08:34:00 Test Item Value Reference Range Interpretation Comments POC-CREATININE 0.7 mg/dL 0.6-1.3 TESTED AT [facility] 67[address] ([facility]) (test [place] code = 1859) [address] POC-EGFR ([facility]) 113 mL/min/1.73M2 (test code = 1860) ANG, CV ACCESS, [id number] 15:25:00Reason for Exam:->PROSTATE CANCER FINAL REPORT Right Chest Port-A-Cath removal. History: History of prostate cancer. Completion of chemotherapy. Modality: None. Sedation: None Feeder Operator: Blas Schofield MD. Stonemason: None. Approach: Right anterior chest. Estimated blood loss: < 5 cc. Specimen: None. Te chnique: The procedure including risks and benefits were explained to the patient, who expressed understanding. After informed written consent was obtained, the patient's Right anterior chest region was prepped and draped in the usual sterile fashion. The skin was anesthetized with lidocaine. Incisionwas made over the previous incision line. The port was removed with blunt dissection. The pocket wasflushed with gentamicin. The skin was closed with running subcuticular Vicryl. The patient toleratedthe procedure well and left the department in the same condition. Impression: Successful, uncomplicated removal of a right chest port. Signed: Blas Schofield MDReport Verified Date/Time: 03/22/2018 15:25:39 Reading Location: [facility] P048 [facility] Body Reading Room CBC W/PLT COUNT & AUTO [id number] 11:04:00 Test Item Value Reference Range Interpretation Comments WHITE BLOOD CELL COUNT (BEAKER) 4.6 K/ L 3.5-10.5 (test code = 775) RED BLOOD CELL COUNT (BEAKER) 4.11 M/ L 4.63-6.08 L (test code = 761) HEMOGLOBIN (BEAKER) (test code = 11.0 GM/DL 13.7-17.5 L 410) HEMATOCRIT (BEAKER) (test code = 36.1 % 40.1-51.0 L 411) MEAN CORPUSCULAR VOLUME (BEAKER) 87.8 fL 79.0-92.2 (test code = 753) MEAN CORPUSCULAR HEMOGLOBIN 26.8 pg 25.7-32.2 (BEAKER) (test code = 751) MEAN CORPUSCULAR HEMOGLOBIN CONC 30.5 GM/DL 32.3-36.5 L (BEAKER) (test code = 752) RED CELL DISTRIBUTION WIDTH 17.0 % 11.6-14.4 H (BEAKER) (test code = 412) PLATELET COUNT (BEAKER) (test 249 K/CU MM 150-450 code = 756) MEAN PLATELET VOLUME (BEAKER) 9.3 fL 9.4-12.4 L (test code = 754) NUCLEATED RED BLOOD CELLS 0 /100 WBC 0-0 (BEAKER) (test code = 413) NEUTROPHILS RELATIVE PERCENT 58 % (BEAKER) (test code = 429) LYMPHOCYTES RELATIVE PERCENT 21 % (BEAKER) (test code = 430) MONOCYTES RELATIVE PERCENT 9 % (BEAKER) (test code = 431) EOSINOPHILS RELATIVE PERCENT 10 % (BEAKER) (test code = 432) BASOPHILS RELATIVE PERCENT 2 % (BEAKER) (test code = 437) NEUTROPHILS ABSOLUTE COUNT 2.67 K/ L 1.78-5.38 (BEAKER) (test code = 670) LYMPHOCYTES ABSOLUTE COUNT 0.97 K/ L 1.32-3.57 L (BEAKER) (test code = 414) MONOCYTES ABSOLUTE COUNT (BEAKER) 0.40 K/ L 0.30-0.82 (test code = 415) EOSINOPHILS ABSOLUTE COUNT 0.46 K/ L 0.04-0.54 (BEAKER) (test code = 416) BASOPHILS ABSOLUTE COUNT (BEAKER) 0.07 K/ L 0.01-0.08 (test code = 417) IMMATURE GRANULOCYTES-RELATIVE 0 % 0-1 PERCENT (BEAKER) (test code = 2801) [id number] 10:52:00 Test Item Value Reference Range Interpretation Comments PROTIME (BEAKER) (test code = 13.4 seconds 11.7-14.7 759) INR (BEAKER) (test code = 370) 1.0 <=5.9 PARTIAL THROMBOPLASTIN TIME 27.8 seconds 22.5-36.0 (BEAKER) (test code = 760) RECOMMENDED COUMADIN/WARFARIN INR THERAPY RANGESSTANDARD DOSE: 2.0 - 3.0 Includes: PROPHYLAXIS for venous thrombosis, systemic embolization; TREATMENT for venous thrombosis and/or pulmonary embolus.HIGH RISK: Target INR is 2.5-3.5 for patients with mechanical heart valves.CARMEN CV ACCESS, [id number] 17:03:00Reason for Exam:->c61, c77.5FINAL REPORT Right internal jugular chest port insertion, 11/03/2017. History: Prostate cancer. Modality: Sonography and fluoroscopy. Sedation: Versed 1 mg and fentanyl 50 mcg given intravenously for conscious sedation. Vital signs were monitored throughout the procedure by a nurse, and remained stable. Physician intra- service time was 30 minutes. Feeder Operator: Kirstin. Stonemason: Juvenal. Approach: Right internal jugular vein Estimated blood loss: < 5 cc. Specimen: None. Fluoroscopy Time: 0.2 min. Dose (Ka,r): 4.2 mGy. Technique: Informed written consent was obtained. Discussion of risks, benefits, and alternatives were made with the patient. The patient expressed understanding and agreed to proceed. All elements maximal sterile barrier technique was utilized for this procedure, including utilization of sterile scrub solution for skin prep, a large sterile sheet to coverthe areas of the patient that were not prepped, and hand hygiene, mask, head covering, and sterile gown for performing radiologist and scrub technologist. The skin was anesthetized with 2% lidocaine. Ultrasound evaluation showed a patent and compressible right internal jugular vein, which was punctured under direct real-time ultrasound guidance with a micropuncture needle. An ultrasound image was saved to PACS. A 0.018 inch wire was placed through the needle into the right atrium. A 4 Salvadorean micropuncture sheath was placed. A subcutaneous tunnel and pocket were created in the right anterior chest wall by blunt dissection. The pocket was flushed with antibiotic solution. A SmartExposee power injectable port was placed within the pocket and the catheter brought through the tunnel. A peel-away sheath was placed in the right IJ vein and the catheter was advanced through the sheath, with its distal tip termin ating in the cavoatrial junction. The peel-away sheath was removed. The catheter was cut and attached to the port. The port was flushed and aspirated easily following placement. The skin incision was closed with 3-0 running subcuticular Monocryl and Steri-Strips. The small jugular incision site was closed using Steri-Strips. The patient tolerated the procedure well and left the department in the samecondition. Patient received 1 gram of Vancomycin intravenously pre- procedure. Results: Spot radiograph of the chest demonstrates the new right IJ Port-A-Cath to lie in the expected position with its tip overlying the cavoatrial junction. Impression: Successful, uncomplicated placement of a right internal jugular chest port using sonographic and fluoroscopic guidance and conscious sedation. Signed: Kenneth Fulton MDReport Verified Date/Time: 11/03/2017 17:03:53 Reading Location: [facility] B1 P048 Angio Body Reading Room PT/APTT 2017-11-03 08:55:00 Test Item Value Reference Range Interpretation Comments PROTIME (BEAKER) (test code = 12.6 seconds 11.7-14.7 759) INR (BEAKER) (test code = 370) 0.9 <=5.9 PARTIAL THROMBOPLASTIN TIME 27.3 seconds 22.5-36.0 (BEAKER) (test code = 760) RECOMMENDED COUMADIN/WARFARIN INR THERAPY RANGESSTANDARD DOSE: 2.0 - 3.0 Includes: PROPHYLAXIS for venous thrombosis, systemic embolization; TREATMENT for venous thrombosis and/or pulmonary embolus.HIGH RISK: Target INR is 2.5-3.5 for patients with mechanical heart valves.PLATELET [id number] 08:40:00 Test Item Value Reference Range Interpretation Comments PLATELET COUNT (BEAKER) (test 246 K/CU MM 150-450 code = 756) TISSUE [id number] 15:14:00Surgical Pathology Report Case: [id number] Authorizing Provider: Michael Garcia MD Collected: 11/11/2016 0955 Ordering Location: [facility] Received: 11/11/2016 1358 SERVICES Pathologist: Alberto Lennon MD Specimens: A) - Lymph Node, brianna prostatic lymph node B) - Vas Deferens, LeftC) - Lymph Node, left internal iliac lymph node D) - Lymph Node, left pelvic lymph node E) - Vas Deferens, Right F) - Lymph Node, right pelvic lymph node G) - Prostate H) - Lymph Node, right obturator lymph node A. SOFT TISSUE, LABELED "PERIPROSTATIC LYMPH NODE", EXCISION: - BENIGN FIBROADIPOSE TISSUE - NO LYMPH NODES PRESENT B. VAS DEFERENS, LEFT, EXCISION:- NO PATHOLOGIC DIAGNOSIS C. LYMPH NODE,LEFT INTERNAL ILIAC, EXCISION:- METASTATIC ADENOCARCINOMA IN ONE LYMPH NODE (0/1)D. LYMPH NODE, LEFTPELVIC, DISSECTION:- FIVE BENIGN LYMPH NODE (0/5)E. VAS DEFERENS, RIGHT, EXCISION:- NO PATHOLOGIC ABHI GNOSIS F. LYMPH NODE, RIGHT PELVIC, DISSECTION:- TWO BENIGN LYMPH NODE (0/2)G. PROSTATE, ROBOTIC ASSISTED LAPAROSCOPIC RADICAL PROSTATECTOMY: - ADENOCARCINOMA, HERMILO 4+3=7, ESTABLISHED EXTRAPROSTATICEXTENSION, SURGICAL MARGINS NEGATIVE SEMINAL VESICLES, ROBOTIC ASSISTED LAPAROSCOPIC PROSTATECTOMY: - INVOLVEMENT BY ADENOCARCINOMA OF PROSTATEH. LYMPH NODES, RIGHT OBTURATOR, DISSECTION:- ONE BENIGN LYMPH NODES (0/1) PROSTATEGLAND: Radical Prostatectomy (Prostate Res - All Specimens) Specimen Site: Prostatic structure TumorSite: Prostatic structureSPECIMEN Procedure: Radical prostatectomy Prostate Size: Size (cm): 3.5 cm Size (cm): 4.2 cm Size (cm): 2.8 cm Prostate Weight: Specify Weight (g): 41 Lymph Node Sampling: Pelvic lymph node dissectionTUMOR Histologic Type: Adenocarcinoma (acinar, not otherwise specified) Hermilo Pattern: [place] pattern Primary Pattern: Grade 4 Secondary Pattern: Grade 3 Tertiary Pattern: Notapplicable Total Hermilo Score: 7 Tumor Quantitation: Proportion (percentage) of Prostate Involved by Tumor Specify (%): 30 Tumor Quantitation: Tumor size (dominant nodule, if present) Greatest Dimension (mm): 25 mm Extraprostatic Extension: Not identified Seminal Vesicle Invasion (invasion of muscular wall required): Not identified Lymph-Vascular Invasion: Present Perineural Invasion: Present Treatment Effect: Not identifiedMARGINS Margins: Margins uninvolved by invasive carcinomaLYMPH NODES Regional Lymph Nodes: Number of Lymph Nodes Examined: Specify number: 9 Number of Lymph Nodes Involved: Number of Lymph Nodes Involved: Specify number: 1 Diameter of Largest Lymph Node Metastasis (mm): 4 mmSTAGE (pTNM) TNM Descriptors: Not applicable Primary Tumor (pT): pT3b: Seminal vesicle invasion Regional Lymph Nodes (pN): pN1: Metastasis in regional lymph node or nodes Distant Metastasis (pM): Not applicableADDITIONAL FINDINGS Additional Pathologic Findings: Inflammation (specify type):: chronic Adrian tional Pathologic Findings: Nodular prostatic hyperplasia Additional Pathologic Findings: Other (specify): Intraductal carcinomaProstate cancerA. Periprostatic lymph node; B. Left vas deferens; C. Leftinternal iliac lymph node; D. Left pelvic lymph node; E. Right vas deferens; F. Right pelvic lymph node; G. Prostate; H. Right obturator lymph nodeSpecimen A: Received fresh labeled "lymph node", description "periprostatic lymph node" are three irregular yellow-carbajal portions of adipose tissue measuring4.0 x 3.5 1.1 cm in greatest dimension. Sectioning reveals no distinct lymph node. The specimen is entirely submitted in cassette A1-A3.Specimen B: Received fresh labeled "vas deferens, left" is a 2.5 cm in length x 0.5 cm in diameter asencio-white cylindrical tubular structure. The specimen is entirely submitted in cassette B1.Specimen C: Received fresh labeled "lymph node", description "left internal iliac lymph node" is a 3.5 x 1.5 x 0.6 cm yellow-carbajal irregular portion of adipose tissue. Sectioning reveals a 1.5 cm in greatest dimension pink-carbajal irregular lymph node. The specimen is entirely submitted as follows: C1, one bisected lymph node; C2, remainder of specimen. Specimen D: Received fresh labeled "lymph node", description "left pelvic lymph node" is a 5.5 x 4.5 x 2.0 cm aggregate of yellow-carabjal adipose tissue. Sectioning reveals four the pink-carbajal to yellow possible lymph nodes ranging in size from 1.0 cm to 4.0 cm in greatest dimension. The specimen is entirely submitted as follows: D1, two intact lymph nodes; D2, one bisected lymph node; D3-D4, one bisected lymph node; D5-D6, remainder of specimen. Specimen E: Received fresh labeled "vas deferens, right" is a 2.5 cm in length x 0.5 cm in diameter asencio- white cylindrical tubular structure. The specimen is entirely submitted in cassette E1. Specimen F: Received fresh labeled "lymph node", description "right pelvic lymph node", is a 5.0 x4.3 x 1.5 cm aggregate of yellow-carbajal adipose tissue. Sectioning reveals a 3.5 cm in greatest dimension pink-carbajal to yellow irregular lymph node. The specimen is entirely submitted as follows: F1-F2, one serially sectioned lymph node; F3-F6, remainder of specimen. Specimen G: The specimen is received fresh labeled "prostate" is radical prostatectomy specimen with attached bilateral seminal vesicle and vasa deferentia. The prostate weighs 41 gm, measures 3.5 cm, apex to base; 4.2 cm, transversely and 2.8 cm anterior to posterior. The right and left seminal vesicles measure 2.8 x 1 x 0.5 cm and 1.8 x 0.5 x 0.5 cm respectively. The right and left vasa deferentia measure 3 cm and 3 cm in length respectively and 0.5 cm in diameter.The capsular surface of the prostate is purple-carbajal to red, dusky and focally ragged. Ink code: right, black; left, blue. The prostate is serially sectioned from apex to base into nine slices to reveal pink-carbajal to asencio-white homogeneous focally nodular prostatic parenchyma throughout. No discrete masses are identified. Prostate gland is entirely submitted. Sectioning of the seminal vesicles reveals a pink- carbajal unremarkable cut surface. Section code: G1, prostate apex; G2, bladder neck; G3 to G7, prostate slices; G8, right and left seminal vesicles; G9, seminal vesicle tips.CG/pl Specimen H. Received fresh labeled "lymph node", description "right obturator lymph node" is a3.0 x 2.0 x 0.5 cm yellow-carbajal irregular portion of adipose tissue. Sectioning reveals 2.2 cm in greatest dimension pink-carbajal to yellow irregular lymph node. The specimen is entirely submitted as follows: H1, one bisected lymph node; H2, remainder of specimen. 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 The tumor shows established extraprostatic extension in the region of the neurovascular bundle but all surgical margins are negative. The tumor involves the base of the left seminal vesicle. There is large volume perineural space invasion along with considerable amounts of intraductal carcinoma, both of which are adverse prognostic findings. Sacrifice of the left and preservation of the right neurovascular bundle is noted from examination of the surgical specimen.[id number] METABOLIC [id number] 06:01:00 Test Item Value Reference Range Interpretation Comments SODIUM (BEAKER) 140 meq/L 136-145 (test code = 381) POTASSIUM (BEAKER) 3.9 meq/L 3.5-5.1 (test code = 379) CHLORIDE (BEAKER) 106 meq/L 98-107 (test code = 382) CO2 (BEAKER) (test 28 meq/L 22-29 code = 355) BLOOD UREA NITROGEN 9 mg/dL 7-21 (BEAKER) (test code = 354) CREATININE (BEAKER) 0.82 mg/dL 0.57-1.25 (test code = 358) GLUCOSE RANDOM 121 mg/dL 70-105 H (BEAKER) (test code = 652) CALCIUM (BEAKER) 8.5 mg/dL 8.4-10.2 (test code = 697) EGFR (BEAKER) (test 95 mL/min/1.73 ESTIMA GARY GFR IS code = 1092) sq m NOT ACCURATE CREATININE CLEARANCE IN PREDICTING GLOMERULAR FILTRATION RATE . ESTIMATED GFR I S NOT APPLICABLE FOR DIALYSIS PATIEN TS. HEMOGLOBIN AND [id number] 05:42:00 Test Item Value Reference Range Interpretation Comments HEMOGLOBIN (BEAKER) (test code = 12.7 GM/DL 13.0-16.8 L 410) HEMATOCRIT (BEAKER) (test code = 39.3 % 40.0-50.0 L 411) HEMOGLOBIN AND [id number] 15:42:00 Test Item Value Reference Range Interpretation Comments HEMOGLOBIN (BEAKER) (test code = 14.3 GM/DL 13.0-16.8 410) HEMATOCRIT (BEAKER) (test code = 43.0 % 40.0-50.0 411) HEMOGLOBIN AND [id number] 06:10:00 Test Item Value Reference Range Interpretation Comments HEMOGLOBIN (BEAKER) (test code = 12.7 GM/DL 13.0-16.8 L 410) HEMATOCRIT (BEAKER) (test code = 39.6 % 40.0-50.0 L 411) BASIC METABOLIC [id number] 05:50:00 Test Item Value Reference Range Interpretation Comments SODIUM (BEAKER) 140 meq/L 136-145 (test code = 381) POTASSIUM (BEAKER) 3.7 meq/L 3.5-5.1 (test code = 379) CHLORIDE (BEAKER) 107 meq/L 98-107 (test code = 382) CO2 (BEAKER) (test 25 meq/L 22-29 code = 355) BLOOD UREA NITROGEN 10 mg/dL 7-21 (BEAKER) (test code = 354) CREATININE (BEAKER) 0.86 mg/dL 0.57-1.25 (test code = 358) GLUCOSE RANDOM 127 mg/dL 70-105 H (BEAKER) (test code = 652) CALCIUM (BEAKER) 8.3 mg/dL 8.4-10.2 L (test code = 697) EGFR (BEAKER) (test 90 mL/min/1.73 ESTIMA GARY GFR IS code = 1092) sq m NOT ACCURATE CREATININE CLEARANCE IN PREDICTING GLOMERULAR FILTRATION RATE . ESTIMATED GFR I S NOT APPLICABLE FOR DIALYSIS PATIEN TS. BASIC METABOLIC [id number] 14:27:00 Test Item Value Reference Range Interpretation Comments SODIUM (BEAKER) 143 meq/L 136-145 (test code = 381) POTASSIUM (BEAKER) 3.7 meq/L 3.5-5.1 (test code = 379) CHLORIDE (BEAKER) 107 meq/L 98-107 (test code = 382) CO2 (BEAKER) (test 23 meq/L 22-29 code = 355) BLOOD UREA NITROGEN 15 mg/dL 7-21 (BEAKER) (test code = 354) CREATININE (BEAKER) 1.09 mg/dL 0.57-1.25 (test code = 358) GLUCOSE RANDOM 142 mg/dL 70-105 H (BEAKER) (test code = 652) CALCIUM (BEAKER) 8.8 mg/dL 8.4-10.2 (test code = 697) EGFR (BEAKER) (test 68 mL/min/1.73 ESTIMA GARY GFR IS code = 1092) sq m NOT ACCURATE CREATININE CLEARANCE IN PREDICTING GLOMERULAR FILTRATION RATE . ESTIMATED GFR I S NOT APPLICABLE FOR DIALYSIS PATIEN TS. HEMOGLOBIN AND [id number] 13:51:00 Test Item Value Reference Range Interpretation Comments HEMOGLOBIN (BEAKER) (test code = 15.0 GM/DL 13.0-16.8 410) HEMATOCRIT (BEAKER) (test code = 45.9 % 40.0-50.0 411) URINE [id number] 10:39:00 Test Item Value Reference Range Interpretation Comments CULTURE (BEAKER) (test <10,000 col/mL skin code = 1095) carol URINALYSIS W/ [id number] 13:15:00 Test Item Value Reference Range Interpretation Comments COLOR (BEAKER) (test code = 470) Yellow CLARITY (BEAKER) (test code = 469) Clear SPECIFIC GRAVITY UA (BEAKER) (test 1.018 1.001-1.035 code = 468) PH UA (BEAKER) (test code = 467) 7.5 5.0-8.0 PROTEIN UA (BEAKER) (test code = Negative Negative 464) GLUCOSE UA (BEAKER) (test code = Negative Negative 365) KETONES UA (BEAKER) (test code = 10 mg/dL Negative A 371) BILIRUBIN UA (BEAKER) (test code = Negative Negative 462) BLOOD UA (BEAKER) (test code = Negative Negative 461) NITRITE UA (BEAKER) (test code = Negative Negative 465) LEUKOCYTE ESTERASE UA (BEAKER) Negative Negative (test code = 466) UROBILINOGEN UA (BEAKER) (test 0.2 mg/dL 0.2-1.0 code = 463) RBC UA (BEAKER) (test code = 519) < /HPF WBC UA (BEAKER) (test code = 520) 1 /HPF MUCUS (BEAKER) (test code = 1574) Occasional AMORPHOUS CRYSTALS (BEAKER) (test Rare code = 1584) SOURCE(BEAKER) (test code = 2795) BASIC METABOLIC [id number] 13:03:00 Test Item Value Reference Range Interpretation Comments SODIUM (BEAKER) 143 meq/L 136-145 (test code = 381) POTASSIUM (BEAKER) 4.5 meq/L 3.5-5.1 Specimen moderately (test code = 379) hemolyzed CHLORIDE (BEAKER) 108 meq/L 98-107 H (test code = 382) CO2 (BEAKER) (test 25 meq/L 22-29 code = 355) BLOOD UREA NITROGEN 15 mg/dL 7-21 (BEAKER) (test code = 354) CREATININE (BEAKER) 0.83 mg/dL 0.57-1.25 Specimen moderately (test code = 358) hemolyzed GLUCOSE RANDOM 94 mg/dL 70-105 (BEAKER) (test code = 652) CALCIUM (BEAKER) 9.5 mg/dL 8.4-10.2 (test code = 697) EGFR (BEAKER) (test 93 mL/min/1.73 ESTIMA GARY GFR IS code = 1092) sq m NOT ACCURATE CREATININE CLEARANCE IN PREDICTING GLOMERULAR FILTRATION RATE . ESTIMATED GFR I S NOT APPLICABLE FOR DIALYSIS PATIEN TS. PROTHROMBIN [id number] 12:46:00 Test Item Value Reference Range Interpretation Comments PROTIME (BEAKER) (test code = 12.6 seconds 11.7-14.7 759) INR (BEAKER) (test code = 370) 1.0 <=5.9 RECOMMENDED COUMADIN/WARFARIN INR THERAPY RANGESSTANDARD DOSE: 2.0 - 3.0 Includes: PROPHYLAXIS for venous thrombosis, systemic embolization; TREATMENT for venous thrombosis and/or pulmonary embolus.HIGH RISK: Target INR is 2.5-3.5 for patients with mechanical heart valves.[id number] 12:46:00 Test Item Value Reference Range Interpretation Comments PARTIAL THROMBOPLASTIN TIME 25.8 seconds 22.5-36.0 (BEAKER) (test code = 760) CBC W/PLT COUNT & AUTO [id number] 12:40:00 Test Item Value Reference Range Interpretation Comments WHITE BLOOD CELL COUNT (BEAKER) 4.9 K/ L 4.0-10.0 (test code = 775) RED BLOOD CELL COUNT (BEAKER) 4.63 M/ L 4.20-5.80 (test code = 761) HEMOGLOBIN (BEAKER) (test code = 14.3 GM/DL 13.0-16.8 410) HEMATOCRIT (BEAKER) (test code = 42.3 % 40.0-50.0 411) MEAN CORPUSCULAR VOLUME (BEAKER) 91.4 fL 82.0-98.0 (test code = 753) MEAN CORPUSCULAR HEMOGLOBIN 30.9 pg 27.0-33.0 (BEAKER) (test code = 751) MEAN CORPUSCULAR HEMOGLOBIN CONC 33.8 GM/DL 32.0-36.0 (BEAKER) (test code = 752) RED CELL DISTRIBUTION WIDTH 12.1 % 10.3-14.2 (BEAKER) (test code = 412) PLATELET COUNT (BEAKER) (test 206 K/CU MM 150-430 code = 756) MEAN PLATELET VOLUME (BEAKER) 7.4 fL 6.5-10.5 (test code = 754) NUCLEATED RED BLOOD CELLS 0 /100 WBC 0-0 (BEAKER) (test code = 413) NEUTROPHILS RELATIVE PERCENT 58 % (BEAKER) (test code = 429) LYMPHOCYTES RELATIVE PERCENT 29 % (BEAKER) (test code = 430) MONOCYTES RELATIVE PERCENT 6 % (BEAKER) (test code = 431) EOSINOPHILS RELATIVE PERCENT 6 % (BEAKER) (test code = 432) BASOPHILS RELATIVE PERCENT 1 % (BEAKER) (test code = 437) NEUTROPHILS ABSOLUTE COUNT 2.85 K/ L 1.80-8.00 (BEAKER) (test code = 670) LYMPHOCYTES ABSOLUTE COUNT 1.40 K/ L 1.48-4.50 L (BEAKER) (test code = 414) MONOCYTES ABSOLUTE COUNT (BEAKER) 0.30 K/ L 0.00-1.30 (test code = 415) EOSINOPHILS ABSOLUTE COUNT 0.28 K/ L 0.00-0.50 (BEAKER) (test code = 416) BASOPHILS ABSOLUTE COUNT (BEAKER) 0.05 K/ L 0.00-0.20 (test code = 417) 0.00
[2022-10-15 02:22] LABS: Protime INR 0.97
[2022-10-15 02:24] LABS: Absolute Lymphocytes (CBC) 1.2 K/uL (0.7-4.9); Hematocrit 36.5 % (39.6-49.0); Lymphocytes % 24.7 % (15.3-44.8); MCV 86.6 fL (80-100); MPV 8.2 fL (7.6-11.3); RBC Red Blood Cell Count 4.22 M/uL (4.33-5.43)
[2022-10-15 02:33] LABS: Troponin High Sensitivity 5.1 pg/mL (<58.9)
--- NOTE | 2022-10-15 04:02 | ER ---
Nurse's Notes [facility] Name: Stevenson Cabrera Age: 72 yrs Sex: Male : 1950 Arrival Date: 10/15/2022 Time: 00:20 Bed 5 Private MD: Diagnosis: Essential (primary) hypertension Presentation: 10/15 00:42 Chief complaint: Patient states: "Last night I started having tingling and numbness to vc1 my left hand then it went to the right then I started shivering. I took my blood pressure and it was in the 180's over 105.". Ebola Screen: Patient negative for fever greater than or equal to 101.5 degrees Fahrenheit, and additional compatible Ebola Virus Disease symptoms Patient denies exposure to infectious person. Patient denies travel to an Ebola-affected area in the 21 days before illness onset. No symptoms or risks identified at this time. Initial Sepsis Screen: Does the patient meet any 2 criteria? No. Patient's initial sepsis screen is negative. Does the patient have a suspected source of infection? No. Patient's initial sepsis screen is negative. Risk Assessment: Do you want to hurt yourself or someone else? Patient reports no desire to harm self or others. Onset of symptoms was October 13, 2022. 00:42 Method Of Arrival: Ambulatory vc1 00:42 Acuity: NIDHI 3 vc1 00:45 Note had a headache all day. vc1 00:55 Coronavirus screen: Vaccine status: Patient reports being unvaccinated. Client denies vc1 travel out of the [place] in the last 14 days. At this time, the client does not indicate any symptoms associated with coronavirus-19. Triage Assessment: 00:44 General: Appears in no apparent distress. comfortable, Behavior is calm, cooperative, vc1 appropriate for age. Pain: Denies pain. EENT: No deficits noted. No signs and/or symptoms were reported regarding the EENT system. Neuro: Level of Consciousness is awake, alert, obeys commands, Oriented to person, place, time, situation, Appropriate for age Exhaust And Muffler Repairer are equal bilaterally Moves all extremities. Gait is steady, Speech is normal, Facial symmetry appears normal, Pupils are PERRLA, Intact. Cardiovascular: No deficits noted. Respiratory: Airway is patent Respiratory effort is even, unlabored, Respiratory pattern is regular, symmetrical. GI: No deficits noted. No signs and/or symptoms were reported involving the gastrointestinal system. : No deficits noted. No signs and/or symptoms were reported regarding the genitourinary system. Derm: No deficits noted. No signs and/or symptoms reported regarding the dermatologic system. Musculoskeletal: No deficits noted. No signs and/or symptoms reported regarding the musculoskeletal system. Historical: - Allergies: 00:44 No Known Allergies; vc1 - PMHx: 00:44 Hyperlipidemia; Hypertensive disorder; vc1 - PSHx: 00:44 None; vc1 - Immunization history:: Client reports having NOT received the Covid vaccine. - Social history:: Smoking status: Patient denies any tobacco usage or history of. - Family history:: not pertinent. - Hospitalizations: : No recent hospitalization is reported. Screenin:44 [facility] ED Fall Risk Assessment (Adult) History of falling in the last 3 months, vc1 including since admission No falls in past 3 months (0 pts) Confusion or Disorientation No (0 pts) Intoxicated or Sedated No (0 pts) Impaired Gait No (0 pts) Mobility Assist Device Used No (0 pt) Altered Elimination No (0 pt) Score/Fall Risk Level 0 - 2 = Low Risk Oriented to surroundings, Maintained a safe environment, Educated pt \\T\\ family on fall prevention, incl call for assistance when getting out of bed. Abuse screen: Denies threats or abuse. Nutritional screening: No deficits noted. Tuberculosis screening: No symptoms or risk factors identified. Assessment: 01:21 General: Appears in no apparent distress. comfortable, Behavior is calm, cooperative. aa9 Pain: Denies pain. Neuro: Level of Consciousness is awake, alert, obeys commands, Oriented to person, place, time, situation, Exhaust And Muffler Repairer are equal bilaterally Speech is normal, Facial symmetry appears normal, Reports numbness in left hand. Cardiovascular: Patient's skin is warm and dry. Cardiovascular: Denies chest pain, lightheadedness, shortness of breath. Respiratory: Airway is patent Respiratory effort is even, unlabored. GI: Abdomen is obese, Patient currently denies diarrhea, nausea, vomiting. : No signs and/or symptoms were reported regarding the genitourinary system. Derm: Skin is intact, is healthy with good turgor. 03:35 Reassessment: Patient appears in no apparent distress at this time. Patient and/or aa9 family updated on plan of care and expected duration. Pain level reassessed. Patient is alert, oriented x 3, equal unlabored respirations, skin warm/dry/pink. Patient denies pain at this time. Vital Signs: 00:42 BP 177 / 104; Pulse 97; Resp 18; Temp 98.6; Pulse Ox 99% ; vc1 00:48 BP 163 / 92; vc1 01:19 BP 134 / 98; rn 01:22 BP 135 / 97; Pulse 95; Resp 17 S; Pulse Ox 95% on R/A; aa9 03:00 BP 127 / 87; Pulse 78; Pulse Ox 97% on R/A; aa9 04:00 BP 130 / 92; Pulse 78; Resp 19; Temp 98.1; Pulse Ox 98% on R/A; Pain 0/10; pf1 04:00 Pain Scale: Adult pf1 ED Course: 00:25 Patient arrived in ED. ja2 00:26 Sylvain Mccormick MD is Attending Physician. rn 00:44 Triage completed. vc1 00:44 Arm band placed on right wrist. vc1 00:58 Carolyn Lozano, RN is Primary Nurse. aa9 01:10 Missed attempt(s): 20 gauge in right forearm. Bleeding controlled, band aid applied, aa9 catheter tip intact. 01:20 Basic Metabolic Panel Sent. aa9 01:20 CBC with Diff Sent. aa9 01:20 NT PRO-BNP Sent. aa9 01:20 PT-INR Sent. aa9 01:20 Troponin HS Sent. aa9 01:28 XRAY Chest (1 view) In Process Unspecified. EDMS 01:40 No provider procedures requiring assistance completed. Inserted saline lock: 22 gauge pf1 in right antecubital area, using aseptic technique. 03:01 CT Head Brain wo Cont In Process Unspecified. EDMS 03:[address] In Process Unspecified. EDMS 03:[address] In Process Unspecified. EDMS 04:28 IV discontinued, intact, bleeding controlled, No redness/swelling at site. Pressure pf1 dressing applied. Administered Medications: No medications were administered Medication: 00:45 VIS not applicable for this client. vc1 Outcome: 04:01 Discharge ordered by . rn 04:29 Patient left the ED. pf1 Signatures: Dispatcher [employer] EDSylvain Holland MD MD rn [place], Sarah Flanagan RN RN vc1 Carolyn Lozano, RN RN aa9 Anitha reyes RN RN pf1
--- NOTE | 2022-10-15 04:02 | EDPHYS ---
Physician Documentation [facility] Name: Stevenson Cabrera Age: 72 yrs Sex: Male : 1950 Arrival Date: 10/15/2022 Time: 00:20 Bed 5 Private MD: ED Physician Sylvain Mccormick HPI: 10/15 01:20 This 72 yrs old Male presents to ER via Ambulatory with complaints of Numbness Of Hand, rn High Blood Pressure. 01:20 The patient has elevated blood pressure and discovered this at home. Onset: The rn symptoms/episode began/occurred yesterday. Modifying factors:. Associated signs and symptoms: Pertinent positives: headache, tingling of both hands, Pertinent negatives: chest pain, dyspnea, visual changes. Severity of symptoms: At its worst the blood pressure was moderate, in the emergency department the blood pressure is improved. The patient has experienced a previous episode. The patient has not recently seen a physician. Pt reports high blood pressure for last 2 days, assoc with mild headache, and tingling in both hands. Reports tingling has resolved. Checked BP and was elevated more than has been in past so came in for evaluation. No weakness/slurred speech/vision changes/chest pain/sob. No abd or back pain.. Historical: - Allergies: 00:44 No Known Allergies; vc1 - PMHx: 00:44 Hyperlipidemia; Hypertensive disorder; vc1 - PSHx: 00:44 None; vc1 - Immunization history:: Client reports having NOT received the Covid vaccine. - Social history:: Smoking status: Patient denies any tobacco usage or history of. - Family history:: not pertinent. - Hospitalizations: : No recent hospitalization is reported. ROS: 01:20 Constitutional: Negative for fever, chills, and weight loss, Eyes: Negative for injury, rn pain, redness, and discharge, Neck: Negative for injury, pain, and swelling, Cardiovascular: Negative for chest pain, palpitations, and edema, Respiratory: Negative for shortness of breath, cough, wheezing, and pleuritic chest pain, Abdomen/GI: Negative for abdominal pain, nausea, vomiting, diarrhea, and constipation, MS/Extremity: Negative for injury and deformity, Skin: Negative for injury, rash, and discoloration, Neuro: Negative for weakness, and seizure Exam: 01:20 Constitutional: This is a well developed, well nourished patient who is awake, alert, rn and in no acute distress. Head/Face: Normocephalic, atraumatic. Cardiovascular: Regular rate and rhythm. No pulse deficits. Respiratory: No increased work of breathing, no retractions or nasal flaring. Abdomen/GI: Soft, non-tender Skin: Warm, dry MS/ Extremity: Pulses equal, no cyanosis. Neurovascular intact. Full, normal range of motion. Equal circumference. Neuro: Awake and alert, GCS 15, oriented to person, place, time, and situation. Cranial nerves II-XII grossly intact. Motor strength 5/5 in all extremities. Sensory grossly intact. Cerebellar exam normal. 01:38 ECG was reviewed by the Attending Physician. rn Vital Signs: 00:42 BP 177 / 104; Pulse 97; Resp 18; Temp 98.6; Pulse Ox 99% ; vc1 00:48 BP 163 / 92; vc1 01:19 BP 134 / 98; rn 01:22 BP 135 / 97; Pulse 95; Resp 17 S; Pulse Ox 95% on R/A; aa9 03:00 BP 127 / 87; Pulse 78; Pulse Ox 97% on R/A; aa9 04:00 BP 130 / 92; Pulse 78; Resp 19; Temp 98.1; Pulse Ox 98% on R/A; Pain 0/10; pf1 04:00 Pain Scale: Adult pf1 MDM: 00:26 Patient medically screened. rn 04:00 Differential diagnosis: hypertensive crisis, Malignant HTN, CVA, intracerebral rn hemorrhage. Data reviewed: vital signs, nurses notes, lab test result(s), EKG, radiologic studies, CT scan, and as a result, I will discharge patient. Care significantly affected by the following chronic conditions: Hypertension. Counseling: I had a detailed discussion with the patient and/or guardian regarding: the historical points, exam findings, and any diagnostic results supporting the discharge/admit diagnosis, lab results, radiology results, the need for outpatient follow up, to return to the emergency department if symptoms worsen or persist or if there are any questions or concerns that arise at home. Counseling: I had a detailed discussion with the patient and/or guardian regarding: the presence of at least one elevated blood pressure reading (>120/80) during this emergency department visit. Response to treatment: the patient's symptoms have resolved after treatment, the patient's condition has returned to base line, the patient is now symptom free, and as a result, I will discharge patient. Special discussion: I discussed with the patient/guardian in detail that at this point there is no indication for admission to the hospital. It is understood, however, that if the symptoms persist or worsen the patient needs to return immediately for re-evaluation. Based on the history and exam findings, there is no indication for further emergent testing or inpatient evaluation. I discussed with the patient/guardian the need to see the primary care provider for further evaluation of the symptoms. Special discussion: I have referred the patient to see his PCP for further evaluation of high blood pressure. ED course: Had long discussion with patient regarding neg CT and angios of head/neck, trop neg, no ischemia on ecg, symptoms have resolved, could be secondary to his HTN. Will dc home with pcp f/u and BP monitoring with return precautions. . 10/15 00:56 Order name: Basic Metabolic Panel; Complete Time: 02:41 10/15 00:56 Order name: CBC with Diff; Complete Time: 02: rn 10/15 00:56 Order name: NT PRO-BNP; Complete Time: 02:41 rn 10/15 00:56 Order name: PT-INR; Complete Time: 02:41 10/15 00:56 Order name: Troponin HS; Complete Time: 02:41 rn 10/15 00:56 Order name: CT Head Brain wo Cont rn 10/15 00:56 Order name: Head Angio CT rn 10/15 00:56 Order name: Neck Angio CT rn 10/15 00:56 Order name: XRAY Chest (1 view) rn 10/15 00:56 Order name: EKG; Complete Time: 00:57 rn 10/15 00:56 Order name: Cardiac monitoring; Complete Time: : rn 10/15 00:56 Order name: EKG - Nurse/Tech; Complete Time: : rn 10/15 00:56 Order name: IV Saline Lock; Complete Time: 01:40 rn 10/15 00:56 Order name: Labs collected and sent; Complete Time: 01:20 rn 10/15 00:56 Order name: O2 Per Protocol; Complete Time: 01:09 rn 10/15 00:56 Order name: O2 Sat Monitoring; Complete Time: 01:09 rn EC:38 Rate is 86 beats/min. Rhythm is regular. QRS [place] is Normal. [place] interval is normal. QRS rn interval is normal. QT interval is normal. No Q waves. T waves are Normal. No ST changes noted. Clinical impression: Normal ECG. Interpreted by me. Reviewed by me. 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
[2022-10-15 04:55] VITALS: BP 130/92; TEMP 98.1; O2SAT 98
--- NOTE | 2022-10-15 05:33 | EKG ---
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
--- NOTE | 2022-10-19 08:48 | RAD REPORT ---
EXAM DESCRIPTION: RAD - Chest Single View - 10/15/2022 1:26 am CLINICAL HISTORY: HTN, numbness TECHNIQUE: AP chest COMPARISON: None available for comparison FINDINGS: CHEST: Heart: The cardiomediastinal silhouette is within normal limits. Lungs: No focal consolidation. Mediastinum: Unremarkable Pleura: No appreciable effusion. No pneumothorax. Bones: Intact IMPRESSION: No acute cardiopulmonary disease. Electronically signed by: Freddie Escalante MD 10/15/2022 1:40 AM CDT Due to temporary technical issues with the PACS/Fluency reporting system, reports are being signed by the in house radiologist without review as a courtesy to ensure prompt reporting. The interpreting r adiologist is fully responsible for the content of the report.
--- NOTE | 2022-10-19 11:22 | RAD REPORT ---
EXAM DESCRIPTION: CT - Head Brain Wo Cont - 10/15/2022 5:16 am CLINICAL HISTORY: The patient is 72 years old and is Male; Headache;Numbness [facility] MAIN TECHNIQUE: Axial computed tomography images of the head/brain without intravenous contrast. Sagitt al and coronal reformatted images were created and reviewed. This CT exam was performed using one o r more of the following dose reduction techniques: automated exposure control, adjustment of the mA and/or kV according to patient size, and/or use of iterative reconstruction technique. COMPARISON: No relevant prior studies available. FINDINGS: BRAIN: Unremarkable. No extra-axial fluid collection. No intracranial hemorrhage. No transtentorial herniation. No focal asencio-white matter differentiation abnormality. MIDLINE SHIFT: No midline shift. VENTRICLES: Unremarkable. No ventriculomegaly. BONES/JOINTS: Unremarkable. No fracture of the calvarium or visualized facial bones. SOFT TISSUES: Unremarkable. SINUSES: Bilateral maxillary sinus retention cysts. Mild bilateral ethmoid air cell mucosal thicken ing. MASTOID AIR CELLS: Unremarkable as visualized. No mastoid effusion. ORBITS: Bilateral lens replacements. IMPRESSION: No acute intracranial abnormality. Electronically signed by: Haider Wang MD 10/15/2022 3:12 AM CDT Due to temporary technical issues with the PACS/Fluency reporting system, reports are being signed by the in house radiologist without review as a courtesy to ensure prompt reporting. The interpreting r adiologist is fully responsible for the content of the report.
--- NOTE | 2022-10-19 11:26 | RAD REPORT ---
EXAM DESCRIPTION: CT - Head angio - 10/15/2022 5:17 am CLINICAL HISTORY: The patient is 72 years old and is Male; Headache;Numbness [facility] MAIN TECHNIQUE: [place]/head and neck CT angiography protocol performed with intravenous contras t. Sagittal and coronal reformatted images were created and reviewed. This CT exam was performed using one or more of the following dose reduction techniques: automated exposure control, adjustmen t of the mA and/or kV according to patient size, and/or use of iterative reconstruction technique. MIP reconstructed images were created and reviewed. COMPARISON: None. FINDINGS: HEAD: RIGHT ANTERIOR CEREBRAL ARTERY: Unremarkable. No significant stenosis at the visualized segments. Anterior communicating artery is present. No aneurysm. RIGHT MIDDLE CEREBRAL ARTERY: Unremarkable. No significant stenosis at the visualized segments. No aneurysm. 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 No occlusion or significant stenosis. No aneurysm. RIGHT INTRACRANIAL INTERNAL CAROTID ARTERY: Unremarkable. No significant stenosis. No dissectio n or occlusion. RIGHT INTRACRANIAL VERTEBRAL ARTERY: Unremarkable. No significant stenosis. No dissection or oc clusion. LEFT ANTERIOR CEREBRAL ARTERY: Unremarkable. No significant stenosis at the visualized segments. No aneurysm. LEFT MIDDLE CEREBRAL ARTERY: Unremarkable. No significant stenosis at the visualized segments. No aneurysm. LEFT POSTERIOR CEREBRAL ARTERY: Unremarkable. No occlusion or significant stenosis. No aneurysm . LEFT INTRACRANIAL INTERNAL CAROTID ARTERY: Unremarkable. No significant stenosis. No dissection or occlusion. LEFT INTRACRANIAL VERTEBRAL ARTERY: Unremarkable. No significant stenosis. No dissection or occ lusion. BASILAR ARTERY: Unremarkable. No significant stenosis. No aneurysm. OTHER VASCULATURE: No vascular malformation. SINUSES: Bilateral maxillary sinus retention cysts. NECK: RIGHT COMMON CAROTID ARTERY: Unremarkable. No significant stenosis. No dissection or occlusion. RIGHT EXTRACRANIAL INTERNAL CAROTID ARTERY: Unremarkable. No significant stenosis. No dissectio n or occlusion. RIGHT EXTERNAL CAROTID ARTERY: Unremarkable. No occlusion. RIGHT EXTRACRANIAL VERTEBRAL ARTERY: Unremarkable. No significant stenosis. No dissection or oc clusion. LEFT COMMON CAROTID ARTERY: Unremarkable. No significant stenosis. No dissection or occlusion. LEFT EXTRACRANIAL INTERNAL CAROTID ARTERY: Unremarkable. No significant stenosis. No dissection or occlusion. LEFT EXTERNAL CAROTID ARTERY: Unremarkable. No occlusion. LEFT EXTRACRANIAL VERTEBRAL ARTERY: Unremarkable. No significant stenosis. No dissection or occ lusion. 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 LUNG APICES: Unremarkable as visualized. HEAD and NECK: BONES/JOINTS: Unremarkable. No discrete lytic or blastic abnormalities. SOFT TISSUES: Unremarkable. CAROTID STENOSIS REFERENCE USING NASCET CRITERIA: % ICA stenosis = (1 - narrowest ICA diameter/diameter of distal cervical ICA) x 100. Mild - <50% stenosis. Moderate - 50-69% stenosis. Severe - 70-94% stenosis. Near occlusion - 95-99% stenosis. Occluded - 100% stenosis. IMPRESSION: No acute findings in the arteries of the head and neck. Electronically signed by: Haider Wang MD 10/15/2022 3:36 AM CDT Due to temporary technical issues with the PACS/Fluency reporting system, reports are being signed by the in house radiologist without review as a courtesy to ensure prompt reporting. The interpreting r adiologist is fully responsible for the content of the report.
--- NOTE | 2022-10-19 11:28 | RAD REPORT ---
EXAM DESCRIPTION: CT - Neck Angio - 10/15/2022 5:17 am CLINICAL HISTORY: The patient is 72 years old and is Male; Headache;Numbness [facility] MAIN TECHNIQUE: [place]/head and neck CT angiography protocol performed with intravenous contras t. Sagittal and coronal reformatted images were created and reviewed. This CT exam was performed using one or more of the following dose reduction techniques: automated exposure control, adjustmen t of the mA and/or kV according to patient size, and/or use of iterative reconstruction technique. MIP reconstructed images were created and reviewed. COMPARISON: None. FINDINGS: HEAD: RIGHT ANTERIOR CEREBRAL ARTERY: Unremarkable. No significant stenosis at the visualized segments. Anterior communicating artery is present. No aneurysm. RIGHT MIDDLE CEREBRAL ARTERY: Unremarkable. No significant stenosis at the visualized segments. No aneurysm. 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 No occlusion or significant stenosis. No aneurysm. RIGHT INTRACRANIAL INTERNAL CAROTID ARTERY: Unremarkable. No significant stenosis. No dissectio n or occlusion. RIGHT INTRACRANIAL VERTEBRAL ARTERY: Unremarkable. No significant stenosis. No dissection or oc clusion. LEFT ANTERIOR CEREBRAL ARTERY: Unremarkable. No significant stenosis at the visualized segments. No aneurysm. LEFT MIDDLE CEREBRAL ARTERY: Unremarkable. No significant stenosis at the visualized segments. No aneurysm. LEFT POSTERIOR CEREBRAL ARTERY: Unremarkable. No occlusion or significant stenosis. No aneurysm . LEFT INTRACRANIAL INTERNAL CAROTID ARTERY: Unremarkable. No significant stenosis. No dissection or occlusion. LEFT INTRACRANIAL VERTEBRAL ARTERY: Unremarkable. No significant stenosis. No dissection or occ lusion. BASILAR ARTERY: Unremarkable. No significant stenosis. No aneurysm. OTHER VASCULATURE: No vascular malformation. SINUSES: Bilateral maxillary sinus retention cysts. NECK: RIGHT COMMON CAROTID ARTERY: Unremarkable. No significant stenosis. No dissection or occlusion. RIGHT EXTRACRANIAL INTERNAL CAROTID ARTERY: Unremarkable. No significant stenosis. No dissectio n or occlusion. RIGHT EXTERNAL CAROTID ARTERY: Unremarkable. No occlusion. RIGHT EXTRACRANIAL VERTEBRAL ARTERY: Unremarkable. No significant stenosis. No dissection or oc clusion. LEFT COMMON CAROTID ARTERY: Unremarkable. No significant stenosis. No dissection or occlusion. LEFT EXTRACRANIAL INTERNAL CAROTID ARTERY: Unremarkable. No significant stenosis. No dissection or occlusion. LEFT EXTERNAL CAROTID ARTERY: Unremarkable. No occlusion. LEFT EXTRACRANIAL VERTEBRAL ARTERY: Unremarkable. No significant stenosis. No dissection or occ lusion. 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 LUNG APICES: Unremarkable as visualized. HEAD and NECK: BONES/JOINTS: Unremarkable. No discrete lytic or blastic abnormalities. SOFT TISSUES: Unremarkable. CAROTID STENOSIS REFERENCE USING NASCET CRITERIA: % ICA stenosis = (1 - narrowest ICA diameter/diameter of distal cervical ICA) x 100. Mild - <50% stenosis. Moderate - 50-69% stenosis. Severe - 70-94% stenosis. Near occlusion - 95-99% stenosis. Occluded - 100% stenosis. IMPRESSION: No acute findings in the arteries of the head and neck. Electronically signed by: Haider Wang MD 10/15/2022 3:36 AM CDT Due to temporary technical issues with the PACS/Fluency reporting system, reports are being signed by the in house radiologist without review as a courtesy to ensure prompt reporting. The interpreting r adiologist is fully responsible for the content of the report.
== END 2022-10-15 04:29 | disposition home or self-care (01) ==
LOC: ER 00:20
DX: I10 Essential (primary) hypertension (principal)
CPT/HCPCS: 93005; 85025; 80048; 36415; 85610; 84484; 83880; 70450; 70496; 70498; 71045; 99283; Q9967